=== PATIENT | male | born 1965 | race Caucasian/White ===

== ENCOUNTER 2023-06-28 08:14 | Inpatient (IN) | payer BC ==
[2023-06-28] MEDS ORDERED: SODIUM CHLORIDE 0.9% 2,000 ML IV STA (08:38)
[2023-06-28] MEDS ORDERED: ONDANSETRON 4 MG/2 ML VIAL IVP STA (08:38)
[2023-06-28] MEDS ORDERED: KETOROLAC 15 MG/ML 1 ML VIAL IVP STA (08:38)
[2023-06-28 08:53] LABS: Basophils % (A) 0 %; Eosinophils % (A) 1 %; HCT 39.8 % (39.0-53.0); HGB 14.4 gm/dL (13.0-17.5); Hyperchromasia Slight; Lymphocytes # (A) 0.6 k/uL (1.0-4.8); Lymphocytes % (A) 10 %; MCH 28.6 pg (25.0-35.0); MCHC 36.1 g/dL (31.0-37.0); MCV 79.1 fL (80.0-100.0); Mean Platelet Volume 7.6; Monocytes # (A) 0.4 k/uL (0-1.0); Monocytes % (A) 7 %; Neutrophils # (A) 4.5 k/uL (1.3-7.7); Neutrophils % (A) 81 %; Platelet Count 162 k/uL (150-450); Poikilocytosis Slight; RBC 5.03 m/uL (4.30-5.90); RDW 14.4 % (11.5-15.5); WBC 5.6 k/uL (3.8-10.6)
[2023-06-28 09:08] LABS: ALT 14 U/L (4-49); AST 26 U/L (17-59); African American GFR (CKD) 69 (>60 ml/min/1.73 sqM); Albumin 4.8 g/dL (3.5-5.0); Alkaline Phosphatase 99 U/L (38-126); Anion Gap 15 mmol/L; Blood Urea Nitrogen 22 mg/dL (9-20); Calcium 9.8 mg/dL (8.4-10.2); Carbon Dioxide 23 mmol/L (22-30); Chloride 98 mmol/L (98-107); Glucose 133 mg/dL (74-99); Lipase 95 U/L (23-300); Non-African American GFR(CKD) 60 (>60 ml/min/1.73 sqM); Potassium 3.8 mmol/L (3.5-5.1); Sodium 136 mmol/L (137-145); Total Bilirubin 2.1 mg/dL (0.2-1.3); Total Protein 7.2 g/dL (6.3-8.2)
--- NOTE | 2023-06-28 09:29 | CT ---
EXAMINATION TYPE: CT abdomen pelvis wo con DATE OF EXAM: 06/28/2023 COMPARISON: None HISTORY: Abdominal pain-right flank CT DLP: 683.6 mGycm Examination of the solid and hollow viscera is limited given the lack of contrast. Unenhanced CT of t he abdomen and pelvis was performed. Lack of contrast limits evaluation. FINDINGS: LUNG BASES: Layering gallstones are noted. No evidence for infiltrate. LIVER/GB: The gallbladder is unremarkable. No space-occupying hepatic lesion. PANCREAS: No pancreatic mass identified. No inflammatory process seen. SPLEEN: Splenomegaly with craniocaudal measurement of 16.9 cm. No intrasplenic lesions seen. ADRENALS: No adrenal nodules identified. No evidence for thickening. KIDNEYS: No evidence for renal mass. Nonobstructing calculus measuring 3 mm upper pole right kidney. There is mild right-sided hydroureteronephrosis. Hydroureter extends to a right hemipelvic mass which measures approximately 8.3 x 5.3 cm and is likely reflective of the conglomerate adenopathy. Additio nal enlarged lymph nodes are seen within the deep right iliac chain measuring 2.9 x 2.8 cm. Right com mon iliac chain adenopathy noted as well measuring 2.3 cm. Poor distention urinary bladder. BOWEL: Appendix has a normal appearance. No evidence of bowel obstruction. No inflammatory process. Lymph nodes: No evidence for adenopathy greater than 1 cm. Abdominal aorta: Atheromatous changes seen. No evidence for aneurysm. Genital organs: No significant abnormality. Other: Small fat-containing umbilical hernia. IMPRESSION: 1.There is mild right-sided hydroureteronephrosis. Hydroureter extends to a right hemipelvic mass whi ch measures approximately 8.3 x 5.3 cm and is likely reflective of the conglomerate adenopathy. Addit ional enlarged lymph nodes are seen within the deep right iliac chain measuring 2.9 x 2.8 cm. Right c ommon iliac chain adenopathy noted as well measuring 2.3 cm. 2. Splenomegaly.
[2023-06-28 09:40] LABS: Appearance,Urine Clear (Clear); Color,Urine Yellow
[2023-06-28 09:41] LABS: Bilirubin,Urine Negative (Negative); Blood,Urine Negative (Negative); Glucose,Urine (UA) Negative (Negative); Ketones,Urine 1+ (Negative); Nitrite,Urine Negative (Negative); Protein,Urine Trace (Negative)
[2023-06-28 09:42] LABS: Leukocyte Esterase,Urine Negative (Negative)
[2023-06-28] MEDS ORDERED: NALOXONE 0.4 MG/ML 1 ML VIAL IV PRN (10:22)
[2023-06-28] MEDS ORDERED: ACETAMINOPHEN TAB 325 MG TAB PO PRN (10:22)
--- NOTE | 2023-06-28 10:22 | ED ---
Abdominal Pain HPI - General Chief Complaint: Abdominal Pain Stated Complaint: R Abd Pain Time Seen by Provider: 06/28/23 08:25 Source: patient, RN notes reviewed Mode of arrival: ambulatory Limitations: no limitations - History of Present Illness Initial Comments: 57-year-old male presents emergency Department chief complaint abdominal pain. Patient is primarily right-sided does sometimes radiate to the left states that associated nausea and vomiting states nothing really makes the pain feel better or worse toe history kidney stones he denies any dysuria hematuria denies any change in bowel habits no fevers. Patient has no prior abdominal surgeries. - Related Data Allergies Allergy/AdvReac Type Severity Reaction Status Date / Time No Known Allergies Allergy Verified 06/28/23 08:24 Review of Systems ROS Statement: Those systems with pertinent positive or pertinent negative responses have been documented in the HPI. ROS Other: All systems not noted in ROS Statement are negative. Past Medical History Past Medical History: Diabetes Mellitus, Hypertension History of Any Multi-Drug Resistant Organisms: None Reported Additional Past Surgical History / Comment(s): Cyst removed from right knee in 1982 Past Psychological History: No Psychological Hx Reported Smoking Status: Never smoker Past Alcohol Use History: None Reported Past Drug Use History: None Reported General Exam Limitations: no limitations General appearance: alert, in no apparent distress Head exam: Present: atraumatic, normocephalic, normal inspection Eye exam: Present: normal appearance, PERRL, EOMI. Absent: scleral icterus, conjunctival injection, periorbital swelling ENT exam: Present: normal exam, mucous membranes moist Neck exam: Present: normal inspection. Absent: tenderness, meningismus, lymphadenopathy Respiratory exam: Present: normal lung sounds bilaterally. Absent: respiratory distress, wheezes, rales, rhonchi, stridor Cardiovascular Exam: Present: normal rhythm, tachycardia, normal heart sounds. Absent: systolic murmur, diastolic murmur, rubs, gallop, clicks GI/Abdominal exam: Present: soft, tenderness (Mild right), normal bowel sounds. Absent: distended, guarding, rebound, rigid Back exam: Absent: CVA tenderness (R), CVA tenderness (L) Neurological exam: Present: alert Course Vital Signs 06/28/23 08:21 Temperature 98 F Pulse Rate 112 H Respiratory 18 Rate Blood Pressure 156/93 O2 Sat by Pulse 98 Oximetry Medical Decision Making - Medical Decision Making Was pt. sent in by a medical professional or institution ([facility], [employer], urgent care, hospital, or [facility]...) When possible be specific @ -No Did you speak to anyone other than the patient for history (EMS, parent, family, police, friend...)? What history was obtained from this source @ -No Did you review nursing and triage notes (agree or disagree)? Why? @ -I reviewed and agree with nursing and triage notes Were old charts reviewed (outside hosp., previous admission, EMS record, old EKG, old radiological studies, urgent care reports/EKG's, [facility] records)? Report findings @ -No old charts were reviewed Differential Diagnosis (chest pain, altered mental status, abdominal pain women, abdominal pain men, vaginal bleeding, weakness, fever, dyspnea, syncope, headache, dizziness, GI bleed, back pain, seizure, CVA, palpatations, mental health, musculoskeletal)? @ -Differential Abdominal Pain Men: Appendicitis, cholecystitis, diverticulosis, ischemic bowel, pancreatitis, hepatitis, UTI, gastroenteritis, AAA, incarcerated hernia, bowel obstruction, constipation, inflammatory bowel, hepatitis, peptic ulcer disease, splenic infarction, perforated viscus, testicular torsion, this is not meant to be an all-inclusive list EKG interpreted by me (3pts min.). @ -None X-rays interpreted by me (1pt min.). @ -None done CT interpreted by me (1pt min.). @ -CT abdomen pelvis shows hydronephrosis, hydroureter caused by conglomerate lymphadenopathy or mass U/S interpreted by me (1pt. min.). @ -None done What testing was considered but not performed or refused? (CT, X-rays, U/S, labs)? Why? @ -None What meds were considered but not given or refused? Why? @ -None Did you discuss the management of the patient with other professionals (professionals i.e. [facility], [employer], lab, RT, psych nurse, social insurance specialist, commercial real estate agent, teacher, police officer crime prevention, housing case manager)? Give summary @ -I did discuss the case with on-call surgery who recommended patient to be admitted to medicine with oncology evaluation as there is no immediate surgical intervention and no obvious infectious causes. I did discuss case with internal medicine who accepts admission with consult to oncology. Was smoking cessation discussed for >3mins.? @ -No Was critical care preformed (if so, how long)? @ -No Were there social determinants of health that impacted care today? How? (Homelessness, low income, unemployed, alcoholism, drug addiction, transportation, low edu. Level, literacy, decrease access to med. care, nursing home, rehab)? @ -No Was there de-escalation of care discussed even if they declined (Discuss DNR or withdrawal of care, Hospice)? DNR status @ -No What co-morbidities impacted this encounter? (DM, HTN, Smoking, COPD, CAD, Cancer, CVA, ARF, Chemo, Hep., AIDS, mental health diagnosis, sleep apnea, morbid obesity)? @ -None Was patient admitted / discharged? Hospital course, mention meds given and route, prescriptions, significant lab abnormalities, going to OR and other pertinent info. @ -Admitted patient has notable intraabdominal mass and significant lymphadenopathy. This is causing hydroureter and hydronephrosis. Patient will be admitted for further workup and evaluation and symptomatic control. Undiagnosed new problem with uncertain prognosis? @ -Yes patient has intra-abdominal mass Drug Therapy requiring intensive monitoring for toxicity (Heparin, Nitro, Insulin, Cardizem)? @ -No Were any procedures done? @ -No Diagnosis/symptom? @ -Intra-abdominal mass, hydroureter or hydronephrosis Acute, or Chronic, or Acute on Chronic? @ -Acute Uncomplicated (without systemic symptoms) or Complicated (systemic symptoms)? @ -Complicated Side effects of treatment? @ -No Exacerbation, Progression, or Severe Exacerbation? @ -No Poses a threat to life or bodily function? How? (Chest pain, [place], NH, pneumonia, PE, COPD, DKA, ARF, appy, cholecystitis, CVA, Diverticulitis, Homicidal, Suicidal, threat to staff... and all critical care pts) @ -No - Lab Data Result diagrams: 06/28/23 08:44 06/28/23 08:44 Lab Results 06/28/23 06/28/23 06/28/23 Range/Units 08:44 08:44 08:44 WBC 5.6 (3.8-10.6) k/uL RBC 5.03 (4.30-5.90) m/uL Hgb 14.4 (13.0-17.5) gm/dL Hct 39.8 (39.0-53.0) % MCV 79.1 L (80.0-100.0) fL MCH 28.6 (25.0-35.0) pg MCHC 36.1 (31.0-37.0) g/dL RDW 14.4 (11.5-15.5) % Plt Count 162 (150-450) k/uL MPV 7.6 Neutrophils % 81 % Lymphocytes % 10 % Monocytes % 7 % Eosinophils % 1 % Basophils % 0 % Neutrophils # 4.5 (1.3-7.7) k/uL Lymphocytes # 0.6 L (1.0-4.8) k/uL Monocytes # 0.4 (0-1.0) k/uL Eosinophils # 0.0 (0-0.7) k/uL Basophils # 0.0 (0-0.2) k/uL Hyperchromasia Slight Poikilocytosis Slight Sodium 136 L (137-145) mmol/L Potassium 3.8 (3.5-5.1) mmol/L Chloride 98 (98-107) mmol/L Carbon Dioxide 23 (22-30) mmol/L Anion Gap 15 mmol/L BUN 22 H (9-20) mg/dL Creatinine 1.33 H (0.66-1.25) mg/dL Est GFR (CKD-EPI)AfAm 69 (>60 ml/min/1.73 sqM) Est GFR (CKD-EPI)NonAf 60 (>60 ml/min/1.73 sqM) Glucose 133 H (74-99) mg/dL Plasma Lactic Acid Carlos A (0.7-2.0) mmol/L Calcium 9.8 (8.4-10.2) mg/dL Total Bilirubin 2.1 H (0.2-1.3) mg/dL AST 26 (17-59) U/L ALT 14 (4-49) U/L Alkaline Phosphatase 99 (38-126) U/L Total Protein 7.2 (6.3-8.2) g/dL Albumin 4.8 (3.5-5.0) g/dL Lipase 95 (23-300) U/L Urine Color Yellow Urine Appearance Clear (Clear) Urine pH 7.0 (5.0-8.0) Ur Specific [place] 1.020 (1.001-1.035) Urine Protein Trace (Negative) Urine Glucose (UA) Negative (Negative) Urine Ketones 1+ H (Negative) Urine Blood Negative (Negative) Urine Nitrite Negative (Negative) Urine Bilirubin Negative (Negative) Urine Urobilinogen 4.0 (<2.0) mg/dL Ur Leukocyte Esterase Negative (Negative) 06/28/23 Range/Units 08:44 WBC (3.8-10.6) k/uL RBC (4.30-5.90) m/uL Hgb (13.0-17.5) gm/dL Hct (39.0-53.0) % MCV (80.0-100.0) fL MCH (25.0-35.0) pg MCHC (31.0-37.0) g/dL RDW (11.5-15.5) % Plt Count (150-450) k/uL MPV Neutrophils % % Lymphocytes % % Monocytes % % Eosinophils % % Basophils % % Neutrophils # (1.3-7.7) k/uL Lymphocytes # (1.0-4.8) k/uL Monocytes # (0-1.0) k/uL Eosinophils # (0-0.7) k/uL Basophils # (0-0.2) k/uL Hyperchromasia Poikilocytosis Sodium (137-145) mmol/L Potassium (3.5-5.1) mmol/L Chloride (98-107) mmol/L Carbon Dioxide (22-30) mmol/L Anion Gap mmol/L BUN (9-20) mg/dL Creatinine (0.66-1.25) mg/dL Est GFR (CKD-EPI)AfAm (>60 ml/min/1.73 sqM) Est GFR (CKD-EPI)NonAf (>60 ml/min/1.73 sqM) Glucose (74-99) mg/dL Plasma Lactic Acid Carlos A 1.3 (0.7-2.0) mmol/L Calcium (8.4-10.2) mg/dL Total Bilirubin (0.2-1.3) mg/dL AST (17-59) U/L ALT (4-49) U/L Alkaline Phosphatase (38-126) U/L Total Protein (6.3-8.2) g/dL Albumin (3.5-5.0) g/dL Lipase (23-300) U/L Urine Color Urine Appearance (Clear) Urine pH (5.0-8.0) Ur Specific [place] (1.001-1.035) Urine Protein (Negative) Urine Glucose (UA) (Negative) Urine Ketones (Negative) Urine Blood (Negative) Urine Nitrite (Negative) Urine Bilirubin (Negative) Urine Urobilinogen (<2.0) mg/dL Ur Leukocyte Esterase (Negative) Disposition Clinical Impression: Abdominal mass, Hydronephrosis, Hydroureter Disposition: ADMITTED IP TO THIS HOSP Condition: Fair Referrals: Devon Keane MD [Primary Care Provider] - 1-2 days Time of Disposition: 10:02
[2023-06-28] MEDS: SODIUM CHLORIDE 0.9% 1,000 ML IV SCH (10:46)
[2023-06-28] MEDS: HYDROcodone/APAP 5-325MG 1 EACH TAB PO PRN (14:29)
[2023-06-28] MEDS ORDERED: DEXTROSE 50% SYRINGE 50 ML IVP PRN ×2 (14:49)
[2023-06-28] MEDS ORDERED: HEPARIN SODIUM,PORCINE 5,000 UNIT/ML 1 ML VIAL SQ SCH (16:00)
--- NOTE | 2023-06-28 16:39 | P.HPIM ---
History of Present Illness H&P Date: 06/28/23 Patient is a 57-year-old male with history of hypertension, dyslipidemia, diabetes presenting with abdominal pain, nausea or vomiting. He claims that he's been having abdominal pain for the last couple of weeks, and started developing nausea and vomiting 2 days ago. His abdominal pain is mostly right lower quadrant. He denies any other symptoms including chest pain, shortness of breath, palpitations, urinary or bowel complaints. He denies any recent illnesses, travel history, any rashes. Denies any recent sick contacts. He denies any history of family history of malignancy. He claims that he has lost some weight over the last 1-1/2 years which has been intentional. In the ED, temperature was 98, pulse 112, respiratory rate 18, blood pressure 156/93, saturating at 98%. WBC 5.6, hemoglobin 13.4, MCV 79.1, sodium 136, creatinine 1.33, no baseline, total bilirubin 2.1. CT abdomen and pelvis shows mild right-sided hydroureteronephrosis extending to right hemipelvic mass which measures at 8.3 x 5.3 cm, reflective of adenopathy, enlarged lymph nodes within deep iliac right chain measuring at 2.9 cm x 2.8 cm as well as right common iliac chain adenopathy measuring at 2.3 cm x 2 cm, and also splenomegaly. ER had a conversation with surgery, no surgical interventions at the moment. Being admitted for oncology to see. Pertinent positives and negatives as discussed in HPI, a complete review of systems was performed and all other systems are negative. Patient seen and examined at bedside. Vital signs reviewed General: nontoxic, no distress, appears at stated age Derm: warm, dry Head: atraumatic, normocephalic, symmetric Eyes: EOMI, no lid lag, anicteric sclera, pupils equal round reactive to light ENT: Nose and ears atraumatic Neck: No thyromegaly, supple Mouth: no lip lesion, mucus membranes moist Cardiovascular: S1S2 reg, no murmur, no edema Lungs: clear to auscultation bilateral, no rhonchi, no rales, no wheeze, no accessory muscle use Abdominal: soft, tender to palpation right lower quadrant, no guarding, no appreciable organomegaly Ext: no gross muscle atrophy, muscle strength muscle strength 5 out of 5 in all 4 extremities, no contractures Neuro: CN II-XII grossly intact Psych: Alert, oriented, appropriate affect Assessment/Plan: Active: Abdominal adenopathy concerning for possible malignancy Right-sided hydroureteronephrosis Intractable nausea and vomiting Intractable abdominal pain Hyperbilirubinemia Possible acute kidney injury Type 2 diabetes -Oncology consulted, patient may need biopsy. -Tylenol as needed 650 every 6 hours, Sw[place] 5 every 4 hours as needed, Dilaudid 0.5 mg IV every 3 hours needed -Zofran 4 mg IV every 8 over as needed -Okay to continue normal saline at 75 mL an hour -Unsure about baseline creatinine, continue losartan for now -Sliding scale insulin, monitor for hypoglycemia, hold metformin Chronic: Hypertension Dyslipidemia The patient is admitted with an anticipated greater than 2 midnight stay as inpatient status for evaluation of possible malignancy. Surrogate decision-maker: Spouse CODE STATUS: Full code DVT prophylaxis: Subcu heparin Anticipated discharge date: Pending clinical course Anticipated discharge place: Pending clinical course A total of 55 minutes was spent on the care of this complex patient more than 50% of the time was spent in counseling and care coordination. Past Medical History Past Medical History: Diabetes Mellitus, Hypertension History of Any Multi-Drug Resistant Organisms: None Reported Additional Past Surgical History / Comment(s): Cyst removed from right knee in 1981 Past Psychological History: No Psychological Hx Reported Smoking Status: Never smoker Past Alcohol Use History: None Reported Past Drug Use History: None Reported - Past Family History Mother Family Medical History: Congestive Heart Failure (CHF), Diabetes Mellitus, Myocardial Infarction ([place]), Renal Disease Father Family Medical History: Myocardial Infarction ([place]) Medications and Allergies Home Medications Medication Instructions Recorded Confirmed Type Atorvastatin [Lipitor] 20 mg PO DAILY 06/28/23 06/28/23 History Ibuprofen [Motrin] 800 mg PO TID PRN 06/28/23 06/28/23 History Losartan [Cozaar] 25 mg PO DAILY 06/28/23 06/28/23 History Tirzepatide [Mounjaro] 12.5 mg SQ MO 06/28/23 06/28/23 History metFORMIN HCL 1,000 mg PO DAILY 06/28/23 06/28/23 History metFORMIN HCL 1,000 mg PO HS PRN 06/28/23 06/28/23 History Allergies Allergy/AdvReac Type Severity Reaction Status Date / Time No Known Allergies Allergy Verified 06/28/23 13:50 Physical Exam Vitals: Vital Signs Temp Pulse Resp BP Pulse Ox 06/28/23 14:00 94 18 147/86 97 06/28/23 10:23 80 20 145/72 98 06/28/23 08:21 98 F 112 H 18 156/93 98 Intake and Output 06/27/23 06/28/23 06/28/23 22:59 06:59 14:59 Other: Voiding Method Toilet Weight 81.647 kg Results CBC & Chem 7: 06/28/23 08:44 06/28/23 08:44 Labs: Abnormal Lab Results - Last 24 Hours (Table) 06/28/23 06/28/23 06/28/23 Range/Units 08:44 08:44 08:44 MCV 79.1 L (80.0-100.0) fL Lymphocytes # 0.6 L (1.0-4.8) k/uL Sodium 136 L (137-145) mmol/L BUN 22 H (9-20) mg/dL Creatinine 1.33 H (0.66-1.25) mg/dL Glucose 133 H (74-99) mg/dL Total Bilirubin 2.1 H (0.2-1.3) mg/dL Urine Ketones 1+ H (Negative)
[2023-06-28 17:11] LABS: Glucose,Whole Blood 80 mg/dL (70-110)
[2023-06-28] MEDS: INSULIN ASPART (NovoLOG) 100 UNIT/ML VIAL SQ SCH ×2 (17:24→20:31)
[2023-06-28 20:21] LABS: Glucose,Whole Blood 123 mg/dL (70-110)
[2023-06-29] MEDS: HYDROmorphone 0.5 MG/0.5 ML SYRINGE IVP PRN (00:48)
[2023-06-29] MEDS: SODIUM CHLORIDE 0.9% 1,000 ML IV SCH ×2 (00:49→12:46)
[2023-06-29 07:18] LABS: Glucose,Whole Blood 104 mg/dL (70-110)
[2023-06-29] MEDS: INSULIN ASPART (NovoLOG) 100 UNIT/ML VIAL SQ SCH ×4 (08:35→20:11)
[2023-06-29] MEDS: HYDROcodone/APAP 5-325MG 1 EACH TAB PO PRN ×2 (08:51→12:46)
[2023-06-29] MEDS: LOSARTAN 25 MG TAB PO SCH (08:53)
[2023-06-29] MEDS: SENNOSIDES 8.6 MG TAB PO SCH (08:53)
[2023-06-29] MEDS: ATORVASTATIN 20 MG TAB PO SCH (08:53)
[2023-06-29] MEDS ORDERED: ENOXAPARIN 40 MG/0.4 ML SYRINGE SQ SCH (09:00)
[2023-06-29 09:09] LABS: BUN/Creat Ratio 13.33 Ratio (12.00-20.00); Calcium 9.1 mg/dL (8.7-10.3); Chloride 103 mmol/L (96-109); Glucose 99 mg/dL (70-110); Sodium 139 mmol/L (135-145)
--- NOTE | 2023-06-29 10:30 | P.CONS ---
History of Present Illness - Reason for Consult Consult date: 06/29/23 lymphadenopathy Requesting physician: Shaggy Correa - Chief Complaint abd pain, N,V - History of Present Illness Mr. Carcamo is a 57-year-old male with a PMH of HTN, hyperlipidemia, type 2 diabetes mellitus who presented to the hospital with complaints of abdominal pain over the last few weeks, this is been progressive, associated symptoms of nausea and vomiting started the last few days, reports appetite has been poor last few weeks, this is also progressive. Patient has lost 80 pounds over the last year, he has been on Mounjaro. He denies fevers, night sweats, difficulty breathing or shortness of breath, his reports voice has changed, hoarseness. No unusual indigestion or heartburn, abdominal pain or distention, no testicular swelling or masses felt, patient has not palpated any lumps in the groin or the axilla. He is a lifetime nonsmoker, no ETOH abuse. 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 No family history of cancer, no personal history of cancer. He has never had a colonoscopy or ColoGuard testing, he has had his PSA checked. His primary care is Dr. Keane. On admission patient had a CT of the abdomen and pelvis without contrast. This reported splenomegaly, right hemipelvic mass 8.3 x 5.3 cm felt to represent a conglomerate adenopathy. There is also lymphadenopathy in the deep right iliac chain 2.9 x 2.8 cm and right common iliac 2.3 cm. CBC was within normal defined limits, absolute lymphocyte count slightly low at 0.6. BUN 22, creatinine 1.33, bilirubin 2.1. 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 - Past Family History Mother Family Medical History: Congestive Heart Failure (CHF), Diabetes Mellitus, Myocardial Infarction ([place]), Renal Disease Father Family Medical History: Myocardial Infarction ([place]) Medications and Allergies Home Medications Medication Instructions Recorded Confirmed Type Atorvastatin [Lipitor] 20 mg PO DAILY 06/28/23 06/28/23 History Ibuprofen [Motrin] 800 mg PO TID PRN 06/28/23 06/28/23 History Losartan [Cozaar] 25 mg PO DAILY 06/28/23 06/28/23 History Tirzepatide [Mounjaro] 12.5 mg SQ MO 06/28/23 06/28/23 History metFORMIN HCL 1,000 mg PO DAILY 06/28/23 06/28/23 History metFORMIN HCL 1,000 mg PO HS PRN 06/28/23 06/28/23 History Allergies Allergy/AdvReac Type Severity Reaction Status Date / Time No Known Allergies Allergy Verified 06/28/23 13:50 Physical Exam Vitals: Vital Signs Temp Pulse Pulse Resp BP BP Pulse Ox 06/29/23 07:42 98.6 F 93 15 151/87 97 06/29/23 02:00 98.2 F 104 H 16 143/82 97 06/28/23 20:00 98.2 F 89 16 149/88 98 06/28/23 16:12 98.4 F 94 17 135/83 98 06/28/23 15:54 98.4 F 95 18 148/87 97 06/28/23 14:00 94 18 147/86 97 06/28/23 10:23 80 20 145/72 98 Intake and Output 06/28/23 06/29/23 06/29/23 22:59 06:59 14:59 Intake Total 590 Balance 590 Intake: Oral 590 Other: Voiding Method Toilet # Voids 1 3 - Constitutional General appearance: average body habitus, cooperative, no acute distress - EENT Eyes: anicteric sclerae, EOMI, poor dentition ENT: hearing grossly normal, normal oropharynx - Neck Neck: no lymphadenopathy, normal ROM - Respiratory Respiratory: bilateral: CTA - Cardiovascular Rhythm: regular Heart sounds: normal: S1, S2 Abnormal Heart Sounds: no systolic murmur, no diastolic murmur, no rub, no S3 Gallop, no S4 Gallop, no click, no other leg Peripheral Edema: bilateral: None - Gastrointestinal General gastrointestinal: no absent bowel sounds, no decreased bowel sounds, no distended, no hepatomegaly, no hyperactive bowel sounds, normal bowel sounds, no organomegaly, no rigid, no scaphoid, soft, no splenomegaly, no tenderness, no umbilical hernia, no ventral hernia - Integumentary Integumentary: normal - Neurologic Neurologic: CNII-XII intact - Musculoskeletal Musculoskeletal: strength equal bilaterally - Psychiatric Psychiatric: A&O x's 3, appropriate affect, intact judgment & insight Results CBC & Chem 7: 06/28/23 08:44 06/29/23 04:20 Labs: Abnormal Lab Results - Last 24 Hours (Table) 06/28/23 06/28/23 06/28/23 Range/Units 08:44 08:44 08:44 MCV 79.1 L (80.0-100.0) fL Lymphocytes # 0.6 L (1.0-4.8) k/uL Sodium 136 L (137-145) mmol/L BUN 22 H (9-20) mg/dL Creatinine 1.33 H (0.66-1.25) mg/dL Glucose 133 H (74-99) mg/dL POC Glucose (mg/dL) (70-110) mg/dL Hemoglobin A1c (<=6.0) % Total Bilirubin 2.1 H (0.2-1.3) mg/dL Urine Ketones 1+ H (Negative) 06/28/23 06/29/23 Range/Units 20:20 04:20 MCV (80.0-100.0) fL Lymphocytes # (1.0-4.8) k/uL Sodium (137-145) mmol/L BUN (9-20) mg/dL Creatinine (0.66-1.25) mg/dL Glucose (74-99) mg/dL POC Glucose (mg/dL) 123 H (70-110) mg/dL Hemoglobin A1c 6.2 H (<=6.0) % Total Bilirubin (0.2-1.3) mg/dL Urine Ketones (Negative) CT scan - abdomen: report reviewed CT scan - pelvis: report reviewed Assessment and Plan (1) Lymphadenopathy Current Visit: Yes Status: Acute Priority: High Code(s): R59.1 - GENERALIZED ENLARGED LYMPH NODES SNOMED Code(s): 35183248 (2) Hydronephrosis Current Visit: Yes Status: Acute Priority: High Code(s): N13.30 - UNSPECIFIED HYDRONEPHROSIS SNOMED Code(s): 05963833 Plan: Lymphadenopathy -AP without contrast reporting splenomegaly, right hemipelvic mass 8.3 x 5.3 cm, lymphadenopathy in the deep right iliac chain 2.9 x 2.8 cm, right common iliac lymphadenopathy 2.3 cm. Patient's CBC is normal, slightly low absolute lymphocyte count 0.6. Mild renal dysfunction BUN 22 creatinine 1.33. Slightly elevated bilirubin 2.1. Findings concerning for malignant process. -CT of the neck and chest to assess for additional lymphadenopathy -Consult Interventional Radiology to review images to see if a percutaneous core biopsy is reasonable. If not, will consult Surgeon for laparoscopic lymph node excision -Labs ordered to assess lymphadenopathy further. -Lymphadenopathy causing extrinsic compression on right ureter with subsequent hydronephrosis. Will consult Urology for assessment and recommendations regarding if stent is needed or not and if it is, would stent provide relief in this case. -All of the above was discussed with the patient and his , they verbalize understanding the recommendations and plan and are agreeable to proceed. Doctor attests: I performed a history and physical examination of this patient, developed impression and plan of care. Discussed with dictator. I agree with dictators note, documented as a scribe.
[2023-06-29 12:03] LABS: Glucose,Whole Blood 95 mg/dL (70-110)
--- NOTE | 2023-06-29 12:17 | CT ---
EXAMINATION TYPE: CT neck chest w con CT DLP: 964.1 mGycm, Automated exposure control for dose reduction was used. DATE OF EXAM: 06/29/2023 12:01 PM COMPARISON: CT abdomen pelvis 06/28/2023. CLINICAL INDICATION:Male, 57 years old with history of LAD in abd/pelvis, concern for malignancy;, r/ o mets TECHNIQUE: Standard enhanced CT of the neck and chest. Axial sections with coronal and sagittal refo rmats were obtained. Contrast used:100 mL of Isovue 300 with IV Contrast, (none if empty) Oral contrast used: (none if empty) FINDINGS: Brain: Visualized portions are grossly unremarkable. Orbits: Unremarkable Sinuses: Grossly unremarkable. Suprahyoid Neck: The oropharynx, oral cavity, parapharyngeal and retropharyngeal spaces are clear and symmetric. The nasopharynx is unremarkable. Infrahyoid Neck: The larynx, hypopharynx, and supraglottic area are clear and symmetric. Parotid Glands: Unremarkable. Submandibular Glands: Unremarkable. Musculoskeletal: No acute osseous pathology. No aggressive osseous lesion. Lymph nodes: No pathologically enlarged cervical lymph nodes identified.. Vascular structures: Patent with mild atherosclerotic plaque of the internal carotid arteries at the bifurcation. Thoracic Inlet/airway: Airway is patent. The lung apices are clear. Soft tissues/Thyroid: Thyroid and remainder of the soft tissues are unremarkable. Other: none. LUNGS/ PLEURA: No pleural effusion, pneumothorax, focal consolidation. Bilateral lower lobe subsegmen mally atelectasis. No suspicious pulmonary nodule or mass. Elevation the right hemidiaphragm. AIRWAY: Patent and unremarkable. HEART: Size within normal limits. No pericardial effusion. MEDIASTINUM: No evidence of adenopathy. VASCULATURE: No aortic aneurysm. MUSCULOSKELETAL: Mild disc degeneration changes are present throughout the thoracolumbar spine. No ac lalita osseous abnormality. No aggressive osseous lesion. SOFT TISSUES/LYMPH NODES: Unremarkable. LOWER NECK: No significant findings. UPPER ABDOMEN: The hypodense splenic lesions identified with largest measuring up to 4.1 cm. Enlarged spleen measuring 14.8 cm in CC dimension. Cholelithiasis. Periampullary duodenal diverticulum. IMPRESSION 1. No evidence of metastatic disease within the neck or chest. 2. Splenomegaly with at least 3 hypodense lesions identified with largest measuring up to 4.1 cm. [place] concern for splenic metastasis. 3. Cholelithiasis.
[2023-06-29 13:47] LABS: INR 1.1 (<1.2); Prothrombin Time 11.5 sec (10.0-12.5)
--- NOTE | 2023-06-29 16:25 | P.PN ---
Subjective Progress Note Date: 06/29/23 Hospital course: Patient is a very pleasant 57-year-old male with a past medical history of hypertension, dyslipidemia, and type II iqa-pwkakcl-nsuaqcfos diabetes. Pt presented to the hospital on 06/28/23 with abdominal pain, nausea or vomiting. He underwent full evaluation in the emergency department. Labs completed and reviewed. CBC showing no significant abnormalities. BMP revealing elevated renal function with BUN of 22, creatinine 1.33, and GFR of 60 with no previous labs for comparison therefore acute kidney injury versus chronic kidney disease. Lactate was normal findings at 1.3. Liver profile showing elevated total bili of 2.1 and otherwise normal findings. LDH 241. Urinalysis is positive for ketones negative for blood or infection. CT abdomen and pelvis completed revealing right-sided hydronephrosis with hydroureter extending to a right hemipelvic mass measuring approximately 8.3 x 5.3 cm with enlarged lymph nodes seen within right deep iliac chain measuring 2.9 x 2.8 cm, right common iliac chain adenopathy measuring 2.3 cm, and splenomegaly. Patient admitted under our services with consultation to hematology/oncology. Physical exam: Patient seen and fully evaluated at bedside. He reports continued pain to right lower flank but currently denies having any other complaints at this time. Vital signs reviewed and stable. General: Nontoxic, no distress and appears stated age. Derm: Skin warm and dry, normal coloration for ethnicity. Head: Atraumatic, normocephalic and symmetric. Eyes: EOMs intact, no lid lag, and anicteric sclera Mouth: no lip lesions, mucus membranes moist Cardiovascular: regular rate and rhythm with normal S1S2, no murmur, positive posterior tibial pulses bilaterally, and cap refill < 2 seconds. Lungs: Respirations even, regular, and unlabored on room air. Lungs CTA bilaterally, no rhonchi, no rales, no wheezing, and no accessory muscle usage. Abdominal: soft, patient with tenderness to right lower flank, no CVA tenderness Ext: No gross muscle atrophy, no edema, no contractures movement and sensation intact. Patient ambulatory in room with a steady gait. Neuro: Speech clear, face symmetrical and CN II-XII grossly intact with no noted focal neuro deficits. GCS 15. Psych: Alert and oriented to person, place, time, and situation. Appropriate and pleasant affect. Assessment and Plan of Care: Abdominal adenopathy concerning for possible malignancy Right-sided hydroureteronephrosis secondary to obstructing hemipelvis mass Intractable nausea and vomiting Intractable abdominal pain Hyperbilirubinemia -Oncology following, patient will likely need biopsy and placed order for CT neck and chest. -Continue symptomatic care and pain management with Tylenol as needed 650 every 6 hours as needed for mild pain, [place] 5/325 mg tablets every 4 hours as needed for moderate pain, and Dilaudid 0.5 mg IVP every 3 hours as needed for severe pain. -Zofran 4 mg IV every 8 over as needed -Okay to continue normal saline at 75 mL an hour Hypertension Elevated renal function, unclear if acute versus chronic -Patient was started back on losartan as elevated renal function unclear if acute versus chronic and likely is chronic secondary to diabetes and hypertension. At this time patient to continue losartan 25 mg daily while awaiting repeat BMP. If renal function remains stable patient to continue fu rther elevation we will hold the time. Dyslipidemia -Continue daily medication regimen with atorvastatin 20 mg daily. Type 2 diabetes mellitus -Hold Mounjaro and metformin in place patient on glycemic protocol with NovoLog sliding scale. CODE STATUS: Full code DVT prophylaxis: Heparin Anticipated discharge date: Clinical course to determine Anticipated discharge place: Clinical course to determine Patient was seen independently by Nurse Pracitioner. This document was prepared using [employer] dictation software. Please allow for errors in employment appeals examiner, while rare they do occur. Edison Ellis NP rendered care for this patient independently, reviewed the findings and plan as documented in the note above. I did not physically speak with or examine the patient on this date. Given Patients increasing creatinine will consult urology given hydroureter to see if stent would be of benefit. Objective - Vital Signs Vital signs: Vital Signs Temp 98.6 F 06/29/23 07:42 Pulse 93 06/29/23 07:42 Resp 15 06/29/23 07:42 BP 151/87 06/29/23 07:42 Pulse Ox 97 06/29/23 07:42 FiO2 Intake & Output 06/28/23 06/29/23 06/29/23 18:59 06:59 18:59 Intake Total 590 Balance 590 Weight 81.647 kg Intake: Oral 590 Other: Voiding Method Toilet Toilet # Voids 1 3 - Labs CBC & Chem 7: 06/28/23 08:44 06/29/23 04:20 Labs: Abnormal Lab Results - Last 24 Hours (Table) 06/28/23 06/28/23 06/28/23 Range/Units 08:44 08:44 08:44 MCV 79.1 L (80.0-100.0) fL Lymphocytes # 0.6 L (1.0-4.8) k/uL Sodium 136 L (137-145) mmol/L BUN 22 H (9-20) mg/dL Creatinine 1.33 H (0.66-1.25) mg/dL Glucose 133 H (74-99) mg/dL POC Glucose (mg/dL) (70-110) mg/dL Hemoglobin A1c (<=6.0) % Total Bilirubin 2.1 H (0.2-1.3) mg/dL Urine Ketones 1+ H (Negative) 06/28/23 06/29/23 Range/Units 20:20 04:20 MCV (80.0-100.0) fL Lymphocytes # (1.0-4.8) k/uL Sodium (137-145) mmol/L BUN (9-20) mg/dL Creatinine (0.66-1.25) mg/dL Glucose (74-99) mg/dL POC Glucose (mg/dL) 123 H (70-110) mg/dL Hemoglobin A1c 6.2 H (<=6.0) % Total Bilirubin (0.2-1.3) mg/dL Urine Ketones (Negative)
[2023-06-29] MEDS: ONDANSETRON 4 MG/2 ML VIAL IVP PRN (16:38)
[2023-06-29 17:23] LABS: Glucose,Whole Blood 126 mg/dL (70-110)
[2023-06-29 20:11] LABS: Glucose,Whole Blood 149 mg/dL (70-110)
[2023-06-29] MEDS ORDERED: hydrALAZINE HCL 25 MG TAB PO STA (20:44)
[2023-06-30] MEDS: SODIUM CHLORIDE 0.9% 1,000 ML IV SCH ×2 (05:28→19:05)
[2023-06-30 07:09] LABS: Glucose,Whole Blood 117 mg/dL (70-110)
[2023-06-30] MEDS: INSULIN ASPART (NovoLOG) 100 UNIT/ML VIAL SQ SCH ×4 (07:53→20:37)
[2023-06-30] MEDS: ONDANSETRON 4 MG/2 ML VIAL IVP PRN (09:07)
[2023-06-30] MEDS: SENNOSIDES 8.6 MG TAB PO SCH (09:07)
[2023-06-30] MEDS: ATORVASTATIN 20 MG TAB PO SCH (09:07)
[2023-06-30] MEDS: LOSARTAN 25 MG TAB PO SCH (09:07)
[2023-06-30] MEDS: HYDROmorphone 0.5 MG/0.5 ML SYRINGE IVP PRN (09:39)
[2023-06-30] MEDS ORDERED: hydrALAZINE HCL 20 MG/ML 1 ML VIAL IVP STA (11:23)
[2023-06-30] MEDS ORDERED: HYDROmorphone 1 MG/ML 1 ML SYRINGE IVP STA (11:24)
[2023-06-30] MEDS ORDERED: LORazepam 2 MG/ML INJ IV STA (11:26)
[2023-06-30] MEDS ORDERED: HYDROmorphone 0.5 MG/0.5 ML SYRINGE IVP STA (11:27)
[2023-06-30 12:54] LABS: Glucose,Whole Blood 97 mg/dL (70-110)
--- NOTE | 2023-06-30 14:31 | CT ---
EXAMINATION TYPE: CT biopsy abdomen percutaneous DATE OF EXAM: 06/30/2023 12:34 PM CLINICAL INDICATION:Male, 57 years old with history of right abdominal mass core biopsy; right sided abdominal bx COMPARISON: 06/28/2023 CT DLP: 833 mGycm, Automated exposure control for dose reduction was used. Contrast used: mL of , none Oral contrast used: none ATTENDING: Dr. Solomon Ann TECHNIQUE: CT guided percutaneous right abdominal mass biopsy using coaxial method. The Radiologist intra-servic e time with the patient under sedation was [address] One or more CT dose reduction strategies were utilized during this examination. Total CT dose 33 mGycm. FINDINGS: The procedure was explained to the patient including risks of bleeding, bruising, infection, damage t o nearby organs and need for additional therapy including potential surgery. All questions were answ ered and consent was obtained. The previous studies were reviewed. The patient was placed on the CT couch in the supine position. The overlying skin was marked and prepped using sterile method. Timeout was taken per protocol. Follo wing administration of local anesthesia a 18 gauge coaxial needle was introduced on the right or mass . The coaxial needle tip was directed into the mass with CT guidance. Multiple 19 gauge coaxial bio psies were then obtained. Touch prep of portions of the specimen were reviewed by pathology departm ent personnel during the procedure to evaluate for cellularity of the samples. The biopsy samples we re sent in appropriate containers for lab analysis. Following the procedure the needle was removed and sterile dressing was applied to the percutaneous site. Post biopsy imaging demonstrated no evid ence of hemorrhage. Patient was taken for postprocedure observation in stable condition. IMPRESSIONS: Status post percutaneous right lower inguinal intra-abdominal mass cc as described above. Pathology r esults pending.
[2023-06-30] MEDS: HYDROcodone/APAP 5-325MG 1 EACH TAB PO PRN (16:40)
--- NOTE | 2023-06-30 16:40 | P.PN ---
Subjective Progress Note Date: 06/30/23 Principal diagnosis: lymphadenopathy At today's visit patient is resting comfortably in bed, family at bedside. S/P biopsy today. Blood pressure was elevated prior to procedure, IV push hydralazine was given along with Ativan and pain medication with improvement in blood pressure and patient was able to proceed with biopsy. Objective - Vital Signs Vital signs: Vital Signs Temp 98.2 F 06/30/23 12:48 Pulse 117 H 06/30/23 12:48 Resp 19 06/30/23 12:48 BP 163/93 06/30/23 12:48 Pulse Ox 96 06/30/23 12:48 FiO2 Intake & Output 06/29/23 06/30/23 06/30/23 18:59 06:59 18:59 Intake Total 590 Balance 590 Intake: Oral 590 Other: Voiding Method Toilet Toilet Toilet # Voids 2 - Constitutional General appearance: Present: average body habitus, no acute distress - EENT Eyes: Present: anicteric sclerae, EOMI ENT: Present: hearing grossly normal - Respiratory Details: breathing is even and unlabored - Cardiovascular Details: skin is warm and dry - Integumentary Integumentary: Absent: cyanotic - Musculoskeletal Musculoskeletal: Present: strength equal bilaterally - Psychiatric Psychiatric: Present: A&O x's 3, appropriate affect, intact judgment & insight - Labs CBC & Chem 7: 06/28/23 08:44 06/29/23 04:20 Labs: Abnormal Lab Results - Last 24 Hours (Table) 06/29/23 06/29/23 06/30/23 Range/Units 17:16 20:05 07:08 POC Glucose (mg/dL) 126 H 149 H 117 H (70-110) mg/dL - Imaging and Cardiology CT scan - abdomen: report reviewed CT scan - chest: report reviewed Assessment and Plan (1) Abdominal mass Current Visit: Yes Status: Acute Priority: High Code(s): R19.00 - INTRA- ABD AND PELVIC SWELLING, MASS AND LUMP, UNSP SITE SNOMED Code(s): 919190977 (2) Lymphadenopathy Current Visit: Yes Status: Acute Priority: High Code(s): R59.1 - GENERALIZED ENLARGED LYMPH NODES SNOMED Code(s): 47672502 Plan: Lymphadenopathy: -AP without contrast reporting splenomegaly, right hemipelvic mass 8.3 x 5.3 cm, lymphadenopathy in the deep right iliac chain 2.9 x 2.8 cm, right common iliac lymphadenopathy 2.3 cm. Patient's CBC is normal, slightly low absolute lymphocyte count 0.6. Mild renal dysfunction BUN 22 creatinine 1.33. Slightly elevated bilirubin 2.1. Findings concerning for malignant process. -CT of the neck and chest ordered to assess for additional lymphadenopathy. Scan revealed no evidence of metastatic disease within the neck and chest. -Consult placed for Interventional Radiology to review images to see if a percutaneous core biopsy is reasonable. BP elevated prior to biopsy, spoke with IM, meds ordered, with improvement in BP. Biopsy was then able to be obtained. Spoke with pt and family and let them know that results can take 3-7 days. From oncology standpoint pt does not need to be hospitalized until resulted, will f/u with patient in clinic to discuss pathology and plan of care pending results. -Will request flow cytometry on pathology. LDH normal -Lymphadenopathy causing extrinsic compression on right ureter with subsequent hydronephrosis. Urology consulted for assessment and recommendations regarding if stent is needed or not and if it is, would stent provide relief in this case. Will await their recommendation -All of the above was discussed with the patient and his , they verbalized understanding and are agreeable with shelia Quinteros attests: I have performed a history and physical examination of this patient, developed impression and plan of care. Discussed with dictator. I agree with dictators note, documented as a scribe.
[2023-06-30 17:58] LABS: Glucose,Whole Blood 112 mg/dL (70-110)
--- NOTE | 2023-06-30 18:53 | P.PN ---
Subjective Progress Note Date: 06/30/23 Hospital course: Patient is a very pleasant 57-year-old male with a past medical history of hypertension, dyslipidemia, and type II dkq-ypmwnnv-fiisarqal diabetes. Pt presented to the hospital on 06/28/23 with abdominal pain, nausea or vomiting. He underwent full evaluation in the emergency department. Labs completed and reviewed. CBC showing no significant abnormalities. BMP revealing elevated renal function with BUN of 22, creatinine 1.33, and GFR of 60 with no previous labs for comparison therefore acute kidney injury versus chronic kidney disease. Lactate was normal findings at 1.3. Liver profile showing elevated total bili of 2.1 and otherwise normal findings. LDH 241. Urinalysis is positive for ketones negative for blood or infection. CT abdomen and pelvis completed revealing right-sided hydronephrosis with hydroureter extending to a right hemipelvic mass measuring approximately 8.3 x 5.3 cm with enlarged lymph nodes seen within right deep iliac chain measuring 2.9 x 2.8 cm, right common iliac chain adenopathy measuring 2.3 cm, and splenomegaly. Patient admitted under our services with consultation to hematology/oncology. Physical exam: Patient seen and fully evaluated at bedside. the patient's family at bedside. Patient anxious this morning regarding undergoing biopsy.. Vital signs reviewed and stable. General: Nontoxic, no distress and appears stated age. Derm: Skin warm and dry, normal coloration for ethnicity. Head: Atraumatic, normocephalic and symmetric. Eyes: EOMs intact, no lid lag, and anicteric sclera Mouth: no lip lesions, mucus membranes moist Cardiovascular: regular rate and rhythm with normal S1S2, no murmur, positive posterior tibial pulses bilaterally, and cap refill < 2 seconds. Lungs: Respirations even, regular, and unlabored on room air. Lungs CTA bilaterally, no rhonchi, no rales, no wheezing, and no accessory muscle usage. Abdominal: soft, patient with tenderness to right lower flank, no CVA tenderne ss Ext: No gross muscle atrophy, no edema, no contractures movement and sensation intact. Patient ambulatory in room with a steady gait. Neuro: Speech clear, face symmetrical and CN II-XII grossly intact with no noted focal neuro deficits. GCS 15. Psych: Alert and oriented to person, place, time, and situation. Appropriate and pleasant affect. Assessment and Plan of Care: Abdominal adenopathy concerning for possible malignancy Right-sided hydroureteronephrosis secondary to obstructing hemipelvis mass Intractable nausea and vomiting Intractable abdominal pain Hyperbilirubinemia -Oncology following, patient scheduled to undergo biopsy with interventional radiologist this morning. -Continue symptomatic care and pain management with Tylenol as needed 650 every 6 hours as needed for mild pain, [place] 5/325 mg tablets every 4 hours as needed for moderate pain, and Dilaudid 0.5 mg IVP every 3 hours as needed for severe pain. -Zofran 4 mg IV every 8 over as needed -follow up on biopsy results. Hypertensive urgency: Sinus tachycardia: Anxiety Patient had an episode of hypertensive urgency and tachycardia this morning. Patient was very anxious regarding undergoing biopsy. Patient was given hydralazine 20 mg IVP 1 dose, Ativan 1 mg IVP, and Dilaudid 0.5 mg IVP.blood pressure significantly improving from previous 173/101-144/85. Patient being taken down for biopsy at this time. We will continue to monitor vital signs closely and place additional orders as needed. Hypertension Elevated renal function, unclear if acute versus chronic -continue losartan 25 mg daily and patient also started on amlodipine 5 mg daily. Dyslipidemia -Continue daily medication regimen with atorvastatin 20 mg daily. Type 2 diabetes mellitus -Hold Mounjaro and metformin in place patient on glycemic protocol with NovoLog sliding scale. CODE STATUS: Full code DVT prophylaxis: Heparin Anticipated discharge date: Clinical course to determine Anticipated discharge place: Clinical course to determine Patient was seen independently by Nurse Pracitioner. This document was prepared using [employer] dictation software. Please allow for errors in records technician, while rare they do occur. Edison Ellis NP rendered care for this patient independently, reviewed the findings and plan as documented in the note above. I did not physically speak with or examine the patient on this date. Objective - Vital Signs Vital signs: Vital Signs Temp 98.9 F 06/30/23 02:00 Pulse 113 H 06/30/23 02:00 Resp 16 06/30/23 02:00 BP 159/89 06/30/23 02:00 Pulse Ox 96 06/30/23 02:00 FiO2 Intake & Output 06/29/23 06/30/23 06/30/23 18:59 06:59 18:59 Intake Total 590 Balance 590 Intake: Oral 590 Other: Voiding Method Toilet Toilet # Voids 2 - Labs CBC & Chem 7: 07/01/23 06:44 07/01/23 06:44 Labs: Abnormal Lab Results - Last 24 Hours (Table) 06/29/23 06/29/23 06/30/23 Range/Units 17:16 20:05 07:08 POC Glucose (mg/dL) 126 H 149 H 117 H (70-110) mg/dL
[2023-06-30] MEDS ORDERED: LORazepam 1 MG TAB PO PRN (19:34)
[2023-06-30 20:22] LABS: Glucose,Whole Blood 131 mg/dL (70-110)
[2023-07-01 07:32] LABS: Glucose,Whole Blood 99 mg/dL (70-110)
[2023-07-01] MEDS: INSULIN ASPART (NovoLOG) 100 UNIT/ML VIAL SQ SCH ×4 (08:02→21:52)
[2023-07-01] MEDS: LOSARTAN 25 MG TAB PO SCH (08:36)
[2023-07-01] MEDS: SENNOSIDES 8.6 MG TAB PO SCH (08:36)
[2023-07-01] MEDS: amLODIPine 5 MG TAB PO SCH (08:36)
[2023-07-01] MEDS: ATORVASTATIN 20 MG TAB PO SCH (08:36)
[2023-07-01 09:38] LABS: ALT 7 U/L (10-49); AST 13 U/L (14-35); Albumin 4.2 d/dL (3.8-4.9); Albumin/Globulin Ratio 2.47 Ratio (1.60-3.17); Alkaline Phosphatase 94 U/L (41-126); BUN/Creat Ratio 10.12 Ratio (12.00-20.00); Blood Urea Nitrogen 16.2 mg/dL (9.0-27.0); Calcium 9.7 mg/dL (8.7-10.3); Carbon Dioxide 23.3 mmol/L (21.6-31.8); Chloride 100 mmol/L (96-109); Globulin 1.7 d/dL (1.6-3.3); Glucose 92 mg/dL (70-110); Magnesium 1.7 mg/dL (1.5-2.4); Potassium 4.1 mmol/L (3.5-5.5); Sodium 137 mmol/L (135-145); Total Bilirubin 1.4 mg/dL (0.3-1.2); Total Protein 5.9 d/dL (6.2-8.2)
[2023-07-01 10:06] LABS: HCT 35.7 % (39.6-50.0); HGB 12.7 d/dL (13.0-17.0); MCH 27.5 pg (27.0-32.0); MCHC 35.6 d/dL (32.0-37.0); MCV 77.3 FL (80.0-97.0); Mean Platelet Volume 8.9 FL (9.5-12.2); NRBC Per 100 WBC 0 X 10*3/uL (0.00-0.01); Platelet Count 158 X 10*3/uL (140-440); RBC 4.62 X 10*6/uL (4.40-5.60); WBC 3.86 X 10*3/uL (4.50-10.00)
[2023-07-01] MEDS: METOPROLOL TARTRATE 25 MG TAB PO SCH ×2 (12:15→21:51)
[2023-07-01 12:32] LABS: Glucose,Whole Blood 107 mg/dL (70-110)
[2023-07-01] MEDS: HYDROcodone/APAP 5-325MG 1 EACH TAB PO PRN (15:25)
--- NOTE | 2023-07-01 15:28 | P.PN ---
Subjective Progress Note Date: 07/01/23 Hospital course: Patient is a very pleasant 57-year-old male with a past medical history of hypertension, dyslipidemia, and type II hln-dxbmtca-vbkkeauko diabetes. Pt presented to the hospital on 06/28/23 with abdominal pain, nausea or vomiting. He underwent full evaluation in the emergency department. Labs completed and reviewed. CBC showing no significant abnormalities. BMP revealing elevated renal function with BUN of 22, creatinine 1.33, and GFR of 60 with no previous labs for comparison therefore acute kidney injury versus chronic kidney disease. Lactate was normal findings at 1.3. Liver profile showing elevated total bili of 2.1 and otherwise normal findings. LDH 241. Urinalysis is positive for ketones negative for blood or infection. CT abdomen and pelvis completed revealing right-sided hydronephrosis with hydroureter extending to a right hemipelvic mass measuring approximately 8.3 x 5.3 cm with enlarged lymph nodes seen within right deep iliac chain measuring 2.9 x 2.8 cm, right common iliac chain adenopathy measuring 2.3 cm, and splenomegaly. Patient admitted under our services with consultation to hematology/oncology. She underwent CT guided bio psy on 06/30/23. Physical exam: Patient seen and fully evaluated at bedside. He continues to report mild pain but reports he is feeling better than yesterday. Blood pressures remain slightly elevated. Patient with an acute kidney injury today losartan to be discontinued and patient started on IV fluid hydration. Vital signs reviewed and stable. General: Nontoxic, no distress and appears stated age. Derm: Skin warm and dry, normal coloration for ethnicity. Head: Atraumatic, normocephalic and symmetric. Eyes: EOMs intact, no lid lag, and anicteric sclera Mouth: no lip lesions, mucus membranes moist Cardiovascular: regular rate and rhythm with normal S1S2, no murmur, positive posterior tibial pulses bilaterally, and cap refill < 2 seconds. Lungs: Respirations even, regular, and unlabored on room air. Lungs CTA bilaterally, no rhonchi, no rales, no wheezing, and no accessory muscle usage. Abdominal: soft, patient with tenderness to right lower flank, no CVA tenderness Ext: No gross muscle atrophy, no edema, no contractures movement and sensation intact. Patient ambulatory in room with a steady gait. Neuro: Speech clear, face symmetrical and CN II-XII grossly intact with no noted focal neuro deficits. GCS 15. Psych: Alert and oriented to person, place, time, and situation. Appropriate and pleasant affect. Assessment and Plan of Care: Abdominal adenopathy concerning for possible malignancy Right-sided hydroureteronephrosis secondary to obstructing hemipelvis mass Intractable nausea and vomiting Intractable abdominal pain Hyperbilirubinemia -Oncology following, patient scheduled to undergo biopsy with interventional radiologist this morning. -Continue symptomatic care and pain management with Tylenol as needed 650 every 6 hours as needed for mild pain, [place] 5/325 mg tablets every 4 hours as needed for moderate pain, and Dilaudid 0.5 mg IVP every 3 hours as needed for severe pain. -Zofran 4 mg IV every 8 over as needed -follow up on biopsy results. Acute kidney injury Losartan discontinued and patient started on 0.9% normal saline at 100 mL per hour. We will continue to monitor closely and repeat morning labs to watch for resolution. Hypertensive urgency: Sinus tachycardia: Anxiety Hypertension Elevated renal function, unclear if acute versus chronic -Acute kidney injury, losartan discontinued patient started on amlodipine 5 mg daily and metoprolol 25 mg twice daily. Dyslipidemia -Continue daily medication regimen with atorvastatin 20 mg daily. Type 2 diabetes mellitus -Hold Mounjaro and metformin in place patient on glycemic protocol with NovoLog sliding scale. Data reviewed: Vital signs reviewed blood pressure 161/94, heart rate 102, respiratory rate 18, temp 90 point 60s Fahrenheit, and SpO2 of 96% on room air. Morning labs reviewed. CBC revealing leukopenia with a BBC count of 3.86, hemoglobin 12.7, and platelet count of 158. BMP revealing acute kidney injury with BUN of 16.2, creatinine 1.6, and GFR of 50. CODE STATUS: Full code DVT prophylaxis: Heparin Anticipated discharge date: Clinical course to determine Anticipated discharge place: Clinical course to determine Patient was seen independently by Nurse Pracitioner. This document was prepared using [employer] dictation software. Please allow for errors in job site supervisor, while rare they do occur. Edison Ellis NP rendered care for this patient independently, reviewed the findings and plan as documented in the note above. I did not physically speak with or examine the patient on this date. Objective - Vital Signs Vital signs: Vital Signs Temp 98.6 F 07/01/23 07:23 Pulse 102 H 07/01/23 07:23 Resp 18 07/01/23 07:23 BP 161/94 07/01/23 07:23 Pulse Ox 96 07/01/23 07:23 FiO2 Intake & Output 06/30/23 07/01/23 07/01/23 18:59 06:59 18:59 Intake Total 222 Balance 222 Intake: Oral 222 Other: Voiding Method Toilet # Voids 4 1 - Labs CBC & Chem 7: 07/01/23 06:44 07/01/23 06:44 Labs: Abnormal Lab Results - Last 24 Hours (Table) 06/30/23 06/30/23 Range/Units 17:56 20:20 POC Glucose (mg/dL) 112 H 131 H (70-110) mg/dL
[2023-07-01] MEDS ORDERED: ALPRAZolam 0.5 MG TAB PO PRN (15:29)
[2023-07-01 17:11] LABS: Glucose,Whole Blood 197 mg/dL (70-110)
[2023-07-01 20:29] LABS: Glucose,Whole Blood 101 mg/dL (70-110)
[2023-07-01] MEDS: SODIUM CHLORIDE 0.9% 1,000 ML IV SCH (21:51)
[2023-07-02 07:41] LABS: Glucose,Whole Blood 99 mg/dL (70-110)
[2023-07-02] MEDS: INSULIN ASPART (NovoLOG) 100 UNIT/ML VIAL SQ SCH ×2 (07:49→12:13)
[2023-07-02 08:37] LABS: HCT 37.7 % (39.0-53.0); HGB 13.3 gm/dL (13.0-17.5); MCH 28.3 pg (25.0-35.0); MCHC 35.4 g/dL (31.0-37.0); Mean Platelet Volume 6.9; Platelet Count 180 k/uL (150-450); Poikilocytosis Slight; RBC 4.71 m/uL (4.30-5.90); RDW 14.3 % (11.5-15.5); WBC 3.8 k/uL (3.8-10.6)
[2023-07-02 09:10] LABS: ALT 10 U/L (4-49); AST 22 U/L (17-59); African American GFR (CKD) 55 (>60 ml/min/1.73 sqM); Albumin 4.1 g/dL (3.5-5.0); Albumin/Globulin Ratio 1.6; Alkaline Phosphatase 85 U/L (38-126); Anion Gap 14 mmol/L; Blood Urea Nitrogen 21 mg/dL (9-20); Calcium 9.5 mg/dL (8.4-10.2); Carbon Dioxide 20 mmol/L (22-30); Chloride 102 mmol/L (98-107); Globulin 2.5 g/dL; Glucose 101 mg/dL (74-99); Magnesium 1.6 mg/dL (1.6-2.3); Non-African American GFR(CKD) 47 (>60 ml/min/1.73 sqM); Sodium 136 mmol/L (137-145); Total Bilirubin 1.7 mg/dL (0.2-1.3); Total Protein 6.6 g/dL (6.3-8.2)
[2023-07-02] MEDS: SENNOSIDES 8.6 MG TAB PO SCH (09:15)
[2023-07-02] MEDS: ATORVASTATIN 20 MG TAB PO SCH (09:15)
[2023-07-02] MEDS: amLODIPine 5 MG TAB PO SCH (09:15)
[2023-07-02] MEDS: METOPROLOL TARTRATE 25 MG TAB PO SCH (09:15)
[2023-07-02 12:01] LABS: Glucose,Whole Blood 105 mg/dL (70-110)
[2023-07-02] MEDS: SODIUM CHLORIDE 0.9% 1,000 ML IV SCH ×2 (12:12→16:14)
[2023-07-02 12:29] VITALS: BP 145/86; PULSE 83; RESP 18; TEMP 97.7
--- NOTE | 2023-07-02 15:43 | P.DS ---
Providers Date of admission: 06/28/23 11:14 Expected date of discharge: 07/02/23 Attending physician: Joseph Gauthier MD Consults: 06/28/23 10:22 Consult Physician Urgent Consulting Provider: Mateus Keller Consult Reason/Comments: Intra-abdominal mass, lymphadenopathy Do you want consulting provider notified?: Yes 06/29/23 10:55 Consult Physician Routine Consulting Provider: Abelardo Light Consult Reason/Comments: hydronephrosis from extrinsic compression, stenting needed/able to be done? Do you want consulting provider notified?: Yes 07/02/23 13:23 Consult Physician Routine Consulting Provider: Todd Salcedo Consult Reason/Comments: hydronephrosis Do you want consulting provider notified?: Yes Primary care physician: Devon Patel [facility] Course: Discharge Diagnosis: Abdominal adenopathy right in renal intra-abdominal mass concerning for possible malignancy, patient underwent CT-guided biopsy on 06/30/23. Patient to follow- up with Dr. Keller in office next week to discuss results of pathology report. Right-sided hydroureteronephrosis secondary to obstructing hemipelvis mass. Received verbal confirmation from Dr. Salcedo that patient was evaluated by Dr. Gonzalez on 06/30/23 and cleared from a urological perspective for outpatient follow-up in their office. Dr. Salcedo stated note would be placed in chart by the end of the day today. Patient also discharged home with prescription for a repeat BMP to be completed in 3 days with results to be sent to Dr. Keller and Dr. Salcedo for follow-up and management. Intractable nausea and vomiting, resolved. Intractable abdominal pain, controlled with current medication regimen. Hyperbilirubinemia, stable Acute kidney injury. Renal function remains slightly elevated but stable. Patient also discharged home with prescription for a repeat BMP to be completed in 3 days with results to be sent to Dr. Keller and Dr. Salcedo for follow-up and management. Hypertensive urgency, resolved. Losartan was discontinued secondary to acute kidney injury and patient was discharged home on amlodipine 5 mg daily metoprolol 25 mg twice daily. Sinus tachycardia, resolved Dyslipidemia. Continue daily medication regimen with atorvastatin 20 mg daily. Type 2 diabetes mellitus. Patient may resume Mounjaro and metformin. Hospital Course: Patient is a very pleasant 57-year-old male with a past medical history of hypertension, dyslipidemia, and type II uiw-[id number] diabetes. Pt presented to the hospital on 06/28/23 with abdominal pain, nausea or vomiting. He underwent full evaluation in the emergency department. Labs completed and reviewed. CBC showing no significant abnormalities. BMP revealing elevated renal function with BUN of 22, creatinine 1.33, and GFR of 60 with no previous labs for comparison therefore acute kidney injury versus chronic kidney disease. Lactate was normal findings at 1.3. Liver profile showing elevated total bili of 2.1 and otherwise normal findings. LDH 241. Urinalysis is positive for ketones negative for blood or infection. CT abdomen and pelvis completed revealing right-sided hydronephrosis with hydroureter extending to a right hemipelvic mass measuring approximately 8.3 x 5.3 cm with enlarged lymph nodes seen within right deep iliac chain measuring 2.9 x 2.8 cm, right common iliac chain adenopathy measuring 2.3 cm, and splenomegaly. Patient admitted under our services with consultation to hematology/oncology and urology. Received verbal confirmation from Dr. Salcedo that patient was evaluated by Dr. Gonzalez on 06/30/23 and cleared from a urological perspective for outpatient follow-up in their office. He underwent CT guided biopsy on 06/30/23. Losartan was discontinued and patient was started on amlodipine 5 mg daily and metoprolol 25 mg twice daily. Hypertensive urgency and tachycardia has resolved. Blood pressures stable. Patient reports pain is currently controlled under current pain medication regimen. Discussed with oncology patient to be discharged home with one-week supply of pain medication, antiemetics, and anti-anxiolytics. Patient to follow-up with hematology/oncology office in one week for pathology report. Oncologist stated patient to follow-up in their office within a week. Physical exam: Vital signs reviewed and stable. General: Nontoxic, no distress and appears stated age. Derm: Skin warm and dry, normal coloration for ethnicity. Head: Atraumatic, normocephalic and symmetric. Eyes: EOMs intact, no lid lag, and anicteric sclera Mouth: no lip lesions, mucus membranes moist Cardiovascular: regular rate and rhythm with normal S1S2, no murmur, positive posterior tibial pulses bilaterally, and cap refill < 2 seconds. Lungs: Respirations even, regular, and unlabored on room air. Lungs CTA bilaterally, no rhonchi, no rales, no wheezing, and no accessory muscle usage. Abdominal: soft, patient with tenderness to right lower flank, no CVA tenderness Ext: No gross muscle atrophy, no edema, no contractures movement and sensation intact. Patient ambulatory in room with a steady gait. Neuro: Speech clear, face symmetrical and CN II-XII grossly intact with no noted focal neuro deficits. GCS 15. Psych: Alert and oriented to person, place, time, and situation. Appropriate and pleasant affect. A total of 34 minutes of time were spent preparing this complex discharge summary. Pt was discharged on 07/02/23 at 3:32 PM. Patient was seen independently by Nurse Practitioner. This document was prepared using [employer] dictation software. Please allow for errors in retail sales vitamin consultant while rare they do occur. Edison Ellis NP rendered care for this patient independently, reviewed the findings and plan as documented in the note above. I did not physically speak with or examine the patient on this date Patient Condition at Discharge: Stable Plan - Discharge Summary Discharge Rx Participant: No New Discharge Prescriptions: New HYDROcodone/APAP 5-325MG [[place] 5-325] 1 each PO Q4HR PRN #42 tab PRN Reason: Moderate Pain (Scale 4 To 6) amLODIPine [Norvasc] 5 mg PO DAILY 30 Days #30 tab ALPRAZolam [Xanax] 0.5 mg PO TID PRN #15 tab PRN Reason: Anxiety Prochlorperazine [Compazine] 10 mg PO Q6H PRN #40 tab PRN Reason: Nausea And Vomiting Metoprolol Tartrate [Lopressor] 25 mg PO BID 30 Days #60 tab Continue metFORMIN HCL 1,000 mg PO HS PRN PRN Reason: Blood Sugar - High Tirzepatide [Mounjaro] 12.5 mg SQ MO Ibuprofen [Motrin] 800 mg PO TID PRN PRN Reason: Pain Atorvastatin [Lipitor] 20 mg PO DAILY metFORMIN HCL 1,000 mg PO DAILY Discontinued Losartan [Cozaar] 25 mg PO DAILY Discharge Medication List Atorvastatin [Lipitor] 20 mg PO DAILY 06/28/23 [History] Ibuprofen [Motrin] 800 mg PO TID PRN 06/28/23 [History] Tirzepatide [Mounjaro] 12.5 mg SQ MO 06/28/23 [History] metFORMIN HCL 1,000 mg PO DAILY 06/28/23 [History] metFORMIN HCL 1,000 mg PO HS PRN 06/28/23 [History] ALPRAZolam [Xanax] 0.5 mg PO TID PRN #15 tab 07/02/23 [Rx] HYDROcodone/APAP 5-325MG [[place] 5-325] 1 each PO Q4HR PRN #42 tab 07/02/23 [Rx] Metoprolol Tartrate [Lopressor] 25 mg PO BID 30 Days #60 tab 07/02/23 [Rx] Prochlorperazine [Compazine] 10 mg PO Q6H PRN #40 tab 07/02/23 [Rx] amLODIPine [Norvasc] 5 mg PO DAILY 30 Days #30 tab 07/02/23 [Rx] Follow up Appointment(s)/Referral(s): Mateus Keller MD [STAFF PHYSICIAN] - 1 Week Todd Salcedo MD [STAFF PHYSICIAN] - 1 Week Devon Keane MD [Primary Care Provider] - 1-2 days Ambulatory/Diagnostic Orders: Basic Metabolic Panel [LAB.AMB] Time Frame: 3 Days, Location: None Selected Patient Instructions/Handouts: Hydronephrosis (DC) Activity/Diet/Wound Care/Special Instructions: Activity: As tolerated. Take breaks as needed. Diet: Heart healthy and carb consistent diet. Avoid salts, or foods with hidden salts such as canned or boxed foods and frozen dinners. Extra salt makes your heart work harder and traps the fluid in your body for longer. Special Instructions: Take all of your medications as directed and remember to keep all of your doctor's appointments and follow-up as needed. Thank you for allowing us to participate in your care, it was truly a pleasure having you for our patient!!! Discharge Disposition: HOME SELF-CARE
--- NOTE | 2023-07-03 07:11 | P.GSCN ---
History of Present Illness Consult date: 06/30/23 History of present illness: 57 yo male with dm , htn comes to the hospital with persistent abdominal pain. He has an 80 lb weight loss in the last year. He had a ct scan that identified a rt pelvic mass with some mild right hydronephrosis.. He has no flank pain THere is no history of urological issues including stones, uti or hematuria. Review of Systems All systems: negative - Constitutional Denies fever, Denies weight loss - EENT Eyes: denies blurred vision Ears, nose, mouth and throat: Denies dysphagia - Cardiovascular Denies chest pain, Denies shortness of breath - Respiratory Denies cough, Denies 7 - Gastrointestinal Reports as per HPI - Genitourinary Denies dysuria, Denies hematuria - Integumentary Denies rash, Denies unusual bruising - Neurological Denies headaches, Denies syncope - Hematologic/Lymphatic Denies easy bleeding, Denies easy bruising Past Medical History Past Medical History: Diabetes Mellitus, Hypertension History of Any Multi-Drug Resistant Organisms: None Reported Past Surgical History: No Surgical Hx Reported Additional Past Surgical History / Comment(s): Cyst removed from right knee in 1981 Past Anesthesia/Blood Transfusion Reactions: No Reported Reaction Past Psychological History: No Psychological Hx Reported Smoking Status: Never smoker Past Alcohol Use History: None Reported Past Drug Use History: None Reported - Past Family History Mother Family Medical History: Congestive Heart Failure (CHF), Diabetes Mellitus, Myocardial Infarction ([place]), Renal Disease Father Family Medical History: Myocardial Infarction ([place]) Medications and Allergies Home Medications Medication Instructions Recorded Confirmed Type Atorvastatin [Lipitor] 20 mg PO DAILY 06/28/23 06/28/23 History Ibuprofen [Motrin] 800 mg PO TID PRN 06/28/23 06/28/23 History Tirzepatide [Mounjaro] 12.5 mg SQ MO 06/28/23 06/28/23 History metFORMIN HCL 1,000 mg PO DAILY 06/28/23 06/28/23 History metFORMIN HCL 1,000 mg PO HS PRN 06/28/23 06/28/23 History ALPRAZolam [Xanax] 0.5 mg PO TID PRN #15 tab 07/02/23 Rx HYDROcodone/APAP 5-325MG [[place] 1 each PO Q4HR PRN #42 tab 07/02/23 Rx 5-325] Metoprolol Tartrate [Lopressor] 25 mg PO BID 30 Days #60 tab 07/02/23 Rx Prochlorperazine [Compazine] 10 mg PO Q6H PRN #40 tab 07/02/23 Rx amLODIPine [Norvasc] 5 mg PO DAILY 30 Days #30 tab 07/02/23 Rx Allergies Allergy/AdvReac Type Severity Reaction Status Date / Time No Known Allergies Allergy Verified 06/28/23 13:50 Surgical - Exam Vital Signs Temp Pulse Resp BP Pulse Ox 98 F 112 H 18 156/93 98 06/28/23 08:21 06/28/23 08:21 06/28/23 08:21 06/28/23 08:21 06/28/23 08:21 - General well developed, well nourished, no distress - Eyes normal ocular movement, no icteric - ENT no hearing loss, no congestion - Neck no masses, trachea midline - Respiratory normal respiratory effort, clear to auscultation - Abdomen Abdomen: soft, non tender, no guarding, no rigid, no rebound - Integumentary no rash, no abnormal pigmentation - Neurologic no disoriented, no combative - Psychiatric oriented to time, oriented to person, oriented to place, speech is normal, memory intact Results - Labs 07/02/23 07:58 07/02/23 07:58 Abnormal Lab Results - Last 24 Hours (Table) 06/29/23 06/29/23 06/29/23 Range/Units 04:20 04:20 17:16 Est GFR (CKD-EPI) 54 L (>=60) POC Glucose (mg/dL) 126 H (70-110) mg/dL Hemoglobin A1c 6.2 H (<=6.0) % 06/29/23 Range/Units 20:05 Est GFR (CKD-EPI) (>=60) POC Glucose (mg/dL) 149 H (70-110) mg/dL Hemoglobin A1c (<=6.0) % Diabetes panel 06/29/23 06/29/23 Range/Units 04:20 04:20 Sodium 139 (135-145) mmol/L Potassium 4.0 (3.5-5.5) mmol/L Chloride 103 (96-109) mmol/L Carbon Dioxide 26.0 (21.6-31.8) mmol/L BUN 20.0 (9.0-27.0) mg/dL Creatinine 1.5 (0.6-1.5) mg/dL Glucose 99 (70-110) mg/dL Hemoglobin A1c 6.2 H (<=6.0) % Calcium 9.1 (8.7-10.3) mg/dL Calcium panel 06/29/23 Range/Units 04:20 Calcium 9.1 (8.7-10.3) mg/dL Pituitary panel 06/29/23 Range/Units 04:20 Sodium 139 (135-145) mmol/L Potassium 4.0 (3.5-5.5) mmol/L Chloride 103 (96-109) mmol/L Carbon Dioxide 26.0 (21.6-31.8) mmol/L BUN 20.0 (9.0-27.0) mg/dL Creatinine 1.5 (0.6-1.5) mg/dL Glucose 99 (70-110) mg/dL Calcium 9.1 (8.7-10.3) mg/dL Adrenal panel 06/29/23 Range/Units 04:20 Sodium 139 (135-145) mmol/L Potassium 4.0 (3.5-5.5) mmol/L Chloride 103 (96-109) mmol/L Carbon Dioxide 26.0 (21.6-31.8) mmol/L BUN 20.0 (9.0-27.0) mg/dL Creatinine 1.5 (0.6-1.5) mg/dL Glucose 99 (70-110) mg/dL Calcium 9.1 (8.7-10.3) mg/dL - Imaging CT scan - abdomen: report reviewed, image reviewed CT scan - pelvis: report reviewed, image reviewed Assessment and Plan Assessment: Impression: right hydronephrosis, mil. Pelvic mass probably lymphoma Plan: at present I donot think that a stent is necessary and can reassess after a diagnosis and treatment plan is made
--- NOTE | 2023-07-07 13:06 | CDI ---
Documentation Clarification Form Date: 07/07/23 From: Vielka Lee Admit Date: 06/28/2023 11:14:00 AM Patient Name: Antolin Strong Visit Number: [id number] Discharge Date: 07/02/2023 05:07:00 PM ATTENTION: The Clinical Documentation Specialists (CDI) and [facility] Coding Staff appreciate your assistance in clarifying documentation. Please respond to the clarification below the line at the bottom and electronically sign. The CDI & [facility] Coding staff will review the response and follow-up if needed. Please note: Queries are made part of the Legal Health Record. If you have any questions, please contact the author of this message via ITS. Dr. Justin, The final diagnosis of the pathology report 06/30/23 states: lymphoid infiltrates w focal fibrosis and positive CD30 cells raises possibility of Hodgkins lymphoma. Uroconsult on 06/30/23 = Pelvic mass with probable lymphoma Coding guidelines do not allow coding professionals to code based on pathology results; therefore, clarification is requested. History/risk factors: abdominal lymphadenopathy with hydronephrosis. Clinical Indicators: abdominal pain, N & V, hydronephosis and acute kidney faiure. Treatment: CT guided biopsy intra abdominal mass Please clarify if you agree with the pathology report diagnosis of possible Hodgkins Lymphoma? [ ] Yes [ ] No [ X ] Other (please specify) [ ] Unable to determine Pathology report not available to time of discharge, was not signed until 07/06. EDGARD
== END 2023-07-02 17:07 | disposition home or self-care (01) | DRG 844 ==
LOC: EC 08:14 → 5NMEDONC 11:14
PROVIDERS: ADMIT Student in an Organized Health Care Education/Training Program; ATTEND Student in an Organized Health Care Education/Training Program
PROC: 0W9G3ZX Drainage of Peritoneal Cavity, Percutaneous Approach, Diagnostic (ICD-10-PCS; principal; 2023-06-30)
DX: C48.0 Malignant neoplasm of retroperitoneum (principal); N13.6 Pyonephrosis; N17.9 Acute kidney failure, unspecified; I16.0 Hypertensive urgency; E78.5 Hyperlipidemia, unspecified; R59.0 Localized enlarged lymph nodes; I10 Essential (primary) hypertension; Z79.84 Long term (current) use of oral hypoglycemic drugs; Z79.899 Other long term (current) drug therapy; Z82.49 Family history of ischemic heart disease and other diseases of the circulatory system; Z83.3 Family history of diabetes mellitus; Z87.442 Personal history of urinary calculi; K80.20 Calculus of gallbladder without cholecystitis without obstruction; Z79.1 Long term (current) use of non-steroidal anti-inflammatories (NSAID); Z28.311 Partially vaccinated for COVID-19; Z28.21 Immunization not carried out because of patient refusal
CPT/HCPCS: 36415; 49180; 70491; 71260; 74176; 77012; 80048; 80053; 81003; 83036; 83605; 83615; 83690; 83735; 85025; 85027; 85610; 88184; 88185; 88305; 88341; 88342; 96361; 96374; 96375; 99285

== ENCOUNTER → 2023-07-13 | Outpatient (CLI) | payer BC ==
--- NOTE | 2023-07-14 16:25 | PE ---
EXAMINATION TYPE: PET CT fusion skull to thigh DATE OF EXAM: 07/13/2023 COMPARISON: CT abdomen 06/28/2023 Prior PET/CT: None HISTORY: Pancreatic mass TECHNIQUE: Following the intravenous administration of 10.4 mCi of F-18 FDG, whole body images are p erformed from the skull base to the midthigh. Images are reviewed on the computer in the coronal, ax ial, and sagittal planes. Reconstructed rotating images are created on independent workstation and r eviewed on the computer. A localization and attenuation correction CT is performed in conjunction w ith the PET scan. DLP: 435.32 mGycm SCAN: Initial Blood glucose: 114 mg/dL Average Mediastinum SUV: 1.79 Average Liver SUV: 3.2 FINDINGS: NECK: No abnormal uptake THORAX: No abnormal uptake ABDOMEN: There are at least 3 foci of uptake within the spleen. Example image 118, SUV 15.91 medially and 16.53 laterally. There is a large focus of increased uptake within the inferior spleen with an S UV of 18.04. Image 141. PELVIS: A right common iliac chain large focus of radiotracer is present, image 187 is the 18th 0.18. Large masses in the right lower quadrant, SUV 20.22. Normal uptake within the urinary bladder is pre sent and separate. OSSEOUS STRUCTURES: No abnormal uptake LOCALIZATION CT: Splenic masses are poorly visualized on the noncontrast localization CT. Uptake with in the anterior right hemipelvis correlates with the soft tissue mass. Some prostate hypertrophy appe ars to be present. IMPRESSION: 1. Uptake within the spleen at least 3 large foci compatible with metastatic lesions. 2. Large mass right hemipelvis with marked uptake compatible with neoplasm. 3. No discrete pancreatic uptake is evident.
== END | disposition home or self-care (01) ==
LOC: RADPETMAIN 11:23
PROVIDERS: ATTEND Internal Medicine Hematology & Oncology
DX: C25.8 Malignant neoplasm of overlapping sites of pancreas (principal); D73.89 Other diseases of spleen
CPT/HCPCS: 78815; A9552

== ENCOUNTER 2023-08-17 12:42 | Day surgery (SDC) | payer BC ==
[2023-08-16 13:41] VITALS: BMI 25.1
[~2023-08-17 12:42] MED LIST: DEXAMETHASONE SOD PHOSPHATE 4 MG/ML 1 ML VIAL IV ONE; HYDROmorphone 0.5 MG/0.5 ML SYRINGE IVP PRN; LACTATED RINGERS 1,000 ML IV SCH; LIDOCAINE 1% (10MG/ML) FOR IV START INTRADERMA PRN; ONDANSETRON 4 MG/2 ML VIAL IVP ONE; droPERidol 5 MG/2 ML VIAL IVP ONE
[2023-08-17 13:43] LABS: Basophils % (A) 0 %; Eosinophils # (A) 0.1 k/uL (0-0.7); Eosinophils % (A) 2 %; HCT 36.6 % (39.0-53.0); HGB 12.6 gm/dL (13.0-17.5); Lymphocytes # (A) 0.7 k/uL (1.0-4.8); Lymphocytes % (A) 17 %; MCH 27.7 pg (25.0-35.0); MCHC 34.6 g/dL (31.0-37.0); MCV 80.2 fL (80.0-100.0); Mean Platelet Volume 7.3; Monocytes # (A) 0.4 k/uL (0-1.0); Monocytes % (A) 10 %; Neutrophils # (A) 2.8 k/uL (1.3-7.7); Neutrophils % (A) 68 %; Platelet Count 149 k/uL (150-450); Poikilocytosis Slight; RBC 4.56 m/uL (4.30-5.90); RDW 14.8 % (11.5-15.5); WBC 4.1 k/uL (3.8-10.6)
[2023-08-17 13:44] LABS: Glucose,Whole Blood 110 mg/dL (70-110)
[2023-08-17] MEDS ORDERED: ceFAZolin 1,000 MG VIAL ONE (13:45)
[2023-08-17] MEDS ORDERED: LIDOCAINE 1% INJ 10MG/ML (20 ML MDV) ONE (13:45)
[2023-08-17] MEDS ORDERED: SODIUM CHLORIDE 0.9% 100 ML BAG ONE (13:45)
[2023-08-17] MEDS ORDERED: fentaNYL (PF) 50 MCG/ML 2 ML AMP ONE (13:45)
[2023-08-17] MEDS ORDERED: MIDAZOLAM 2 MG/2 ML VIAL ONE (13:45)
[2023-08-17] MEDS ORDERED: SUCCINYLCHOLINE CHLORIDE 200 MG/10 ML VIAL IV ONE (13:45)
[2023-08-17] MEDS ORDERED: PROPOFOL 10 MG/ML 20 ML VIAL IV ONE (13:45)
[2023-08-17] MEDS ORDERED: SODIUM CHLORIDE 0.9% 50 ML with ceFAZolin 2,000 MG IV ONE ×2 (13:50)
[2023-08-17] MEDS ORDERED: HEPARIN SODIUM,PORCINE 10,000 UNIT in SODIUM CHLORIDE 0.9% 1,000 ML IRRIGATION ONE (14:23)
[2023-08-17] MEDS ORDERED: LIDOCAINE 1% INJ 10MG/ML (20 ML MDV) SQ ONE (14:24)
--- NOTE | 2023-08-17 14:51 | P.OP ---
Date of Procedure: 08/17/23 Description of Procedure: DATE OF PROCEDURE: 08 17 2023 PREOPERATIVE DIAGNOSIS: Need for chemotherapy, lymphoma PROCEDURE: 1. Ultrasound-guided right internal jugular vein access. 2. Placement of a subcutaneous port with central venous access PROCEDURE: The patient was brought to the operating room placed in supine position. The bilateral necks were prepped and draped in usual sterile fashion. A preprocedure timeout was performed, all parties were in agreement. Using ultrasound the right internal jugular was identified. The site overlying the vein was anesthetized with 1% lidocaine plain and an access needle was used to gain access to the internal jugular vein with return of dark venous, no npulsatile blood. Seldinger technique was used and a wire was left in place Attention was then turned towards the pocket. About 2-3 finger breaths from the clavicle, the area was anesthetized and incision was made. Subcutaneous pocket was created.. The chest wall was anesthetized with 1% lidocaine plain. The catheter was then tunneled between the locations. Using Seldinger technique and fluoroscopic assistance, the tear-away sheath was placed over the wire. T The inner cannula and wire were removed. The previously measured catheter catheter was placed in the tear-away sheath was removed in standard fashion. The catheter showed good positioning was final resting place in the cavoatrial junction. The subcu transport was secured with interrupted sutures of 3-0 Prolene The port aspirated and flushed freely with a Wallace needle.. The incision at the neck was reapproximated with interrupted sutures of 4-0 Vicryl. The subcutaneous port site was reapproximated with interrupted sutures of 3-0 Vicryl followed by running 4-0 Monocryl in subcuticular fashion. Dressings were placed. The patient was allowed to awaken from anesthesia and transferred to recovery in stable condition having tolerated the procedure well. A post procedure chest x-ray is pending Plan - Discharge Summary Discharge Rx Participant: Yes New Discharge Prescriptions: No Action ALPRAZolam [Xanax] 0.5 mg PO TID PRN #15 tab PRN Reason: Anxiety Prochlorperazine [Compazine] 10 mg PO Q6H PRN #40 tab PRN Reason: Nausea And Vomiting HYDROcodone/APAP 5-325MG [[place] 5-325] 1 each PO Q4HR PRN PRN Reason: Pain Atorvastatin [Lipitor] 20 mg PO DAILY Metoprolol Tartrate [Lopressor] 25 mg PO BID 30 Days #60 tab amLODIPine [Norvasc] 5 mg PO QAM Tirzepatide [Mounjaro] 5 mg SQ MO Discharge Medication List Atorvastatin [Lipitor] 20 mg PO DAILY 06/28/23 [History] ALPRAZolam [Xanax] 0.5 mg PO TID PRN #15 tab 07/02/23 [Rx] Metoprolol Tartrate [Lopressor] 25 mg PO BID 30 Days #60 tab 07/02/23 [Rx] Prochlorperazine [Compazine] 10 mg PO Q6H PRN #40 tab 07/02/23 [Rx] HYDROcodone/APAP 5-325MG [[place] 5-325] 1 each PO Q4HR PRN 08/16/23 [History] Tirzepatide [Mounjaro] 5 mg SQ MO 08/16/23 [History] amLODIPine [Norvasc] 5 mg PO QAM 08/16/23 [History] Follow up Appointment(s)/Referral(s): Samina Gómez DO [STAFF PHYSICIAN] - 10 Days Activity/Diet/Wound Care/Special Instructions: May shower starting tomorrow. May resume regular home medications. May utilized port when needed. We will follow off on its own. Discharge Disposition: HOME SELF-CARE
[2023-08-17 15:11] VITALS: TEMP 98
--- NOTE | 2023-08-17 15:15 | FL ---
EXAMINATION TYPE: FL guided central line placemt HISTORY: Fluoroscopy time Impression: 1. Fluoroscopy support provided to the referring physician.
[2023-08-17 15:36] VITALS: RESP 16
--- NOTE | 2023-08-17 15:52 | XR ---
EXAMINATION TYPE: XR chest 1V portable DATE OF EXAM: 08/17/2023 COMPARISON: NONE HISTORY: Port placement TECHNIQUE: Single frontal view of the chest is obtained. FINDINGS: Elevated right hemidiaphragm with bilateral lower lobe consolidation. Mediport tip overlyi ng the seen. No sizable pneumothorax. Diffuse osteopenia throughout shoulders. IMPRESSION: 1. Basilar atelectasis or early joint. Favor atelectasis secondary to reduced inspiration. 2. No pneumothorax. Mediport seen with tip overlying the SVC.
[2023-08-17 16:00] VITALS: BP 117/65; PULSE 89
== END 2023-08-17 16:05 | disposition home or self-care (01) ==
LOC: OR 12:42
PROVIDERS: ATTEND Surgery
DX: C85.90 Non-Hodgkin lymphoma, unspecified, unspecified site (principal); I10 Essential (primary) hypertension; E11.9 Type 2 diabetes mellitus without complications; Z79.84 Long term (current) use of oral hypoglycemic drugs; Z98.890 Other specified postprocedural states; Z79.899 Other long term (current) drug therapy; Z51.11 Encounter for antineoplastic chemotherapy
CPT/HCPCS: 36561; 85025; 77001; 71045; C1788; J2250; J0330; J1644; J1100; J2405; J0690; J2001; J3010; J1642; J2704

== ENCOUNTER → 2023-08-18 | Outpatient (CLI) | payer BC ==
--- NOTE | 2023-08-18 18:08 | CA ---
Transthoracic Echo Report Name: Antolin Strong Age: 57 Gender: M : 1965 Exam Date: 08/18/2023 15:46 Exam Location: [facility] Ht (in): 70 Wt (lb): 175 Ordering Physician: Nikko Dos Santos MD Attending/Referring Phys: Staff [employer]ine Warfare Officer Nicolette Alejandro RDCS Procedure CPT: Indications: S09.92XA UNSPECIFIED INJURY OF NOSE Cardiac Hx: Technical Quality: Fair Contrast 1: Total Dose (mL): Contrast 2: Total Dose (mL): MEASUREMENTS (Male / Female) Normal Values 2D ECHO LV Diastolic Diameter PLAX 3.4 cm 4.2 - 5.9 / 3.9 - 5.3 cm LV Systolic Diameter PLAX 2.3 cm IVS Diastolic Thickness 1.2 cm 0.6 - 1.0 / 0.6 - 0.9 cm LVPW Diastolic Thickness 1.5 cm 0.6 - 1.0 / 0.6 - 0.9 cm LV Relative Wall Thickness 0.8 RV Internal Dim ED PLAX 4.4 cm LA Volume 49.0 cm??? 18 - 58 / 22 - 52 cm??? LA Volume Index 24.7 cm???/m??? 16 - 28 cm???/m??? M-MODE Aortic Root Diameter MM 3.4 cm LA Systolic Diameter MM 4.0 cm LA Ao Ratio MM 1.2 AV Cusp Separation MM 2.2 cm DOPPLER AV Peak Velocity 145.5 cm/s AV Peak Gradient 8.5 mmHg AV Mean Velocity 100.4 cm/s AV Mean Gradient 4.6 mmHg AV Velocity Time Integral 26.7 cm LVOT Peak Velocity 140.5 cm/s LVOT Peak Gradient 7.9 mmHg LVOT Velocity Time Integral 23.8 cm MV Area PHT 6.2 cm??? Mitral E Point Velocity 78.7 cm/s Mitral A Point Velocity 101.5 cm/s Mitral E to A Ratio 0.8 MV Deceleration Time 122.1 ms MV E' Velocity 10.4 cm/s Mitral E to MV E' Ratio 7.5 TR Peak Velocity 264.7 cm/s TR Peak Gradient 28.0 mmHg Right Ventricular Systolic Press 31.7 mmHg FINDINGS Left Ventricle Mildly increased left ventricular wall thickness. Left ventricular cavity size normal. Normal left ventricular systolic function with no obvious regional wall motion abnormalities. Left ventricular ejection fraction is estimated at 55-60 %. Right Ventricle Moderate right ventricular dilatation. Right ventricular systolic pressure within normal limits. Right Atrium Normal right atrial size. Left Atrium Normal left atrial size. Mitral Valve Structurally normal mitral valve. Mitral valve thickened. Mild mitral annular calcification. Aortic Valve Trileaflet aortic valve. No aortic valve stenosis or regurgitation. Tricuspid Valve Structurally normal tricuspid valve. Mild tricuspid regurgitation. Pulmonic Valve Structurally normal pulmonic valve. Trace pulmonic regurgitation. Pericardium No pericardial effusion. Aorta Normal size aortic root and proximal ascending aorta. CONCLUSIONS Left ventricular ejection fraction is estimated at 55-60 %. No obvious regional wall motion abnormalities. Mildly increased left ventricular wall thickness. No significant valvular dysfunction No significant chamber size abnormality Previewed by: Dr Obed Camacho (Electronically Signed) Final Date: 18 August 2023 18:07
== END | disposition home or self-care (01) ==
LOC: RADECHMAIN 15:22
PROVIDERS: ATTEND Internal Medicine Hematology & Oncology
DX: Z01.818 Encounter for other preprocedural examination (principal); I51.7 Cardiomegaly; K86.2 Cyst of pancreas; D75.1 Secondary polycythemia; E78.5 Hyperlipidemia, unspecified; R79.89 Other specified abnormal findings of blood chemistry; S09.92XA Unspecified injury of nose, initial encounter; X58.XXXA Exposure to other specified factors, initial encounter
CPT/HCPCS: 93306

== ENCOUNTER → 2023-09-22 | Outpatient (CLI) | payer BC ==
--- NOTE | 2023-09-22 10:52 | US ---
EXAMINATION TYPE: US venous doppler duplex LE RT DATE OF EXAM: 09/22/2023 10:23 AM COMPARISON: NONE CLINICAL INDICATION: Male, 57 years old with history of R22.40 SWELLING, MASS, LUMP LOWER LIMB; Edema right foot/right lower leg SIDE PERFORMED: right TECHNIQUE: The lower extremity deep venous system is examined utilizing real time linear array sonog radha with graded compression, doppler sonography and color-flow sonography. VESSELS IMAGED: Common Femoral Vein Deep Femoral Vein Greater Saphenous Vein * Femoral Vein Popliteal Vein Small Saphenous Vein * Proximal Calf Veins (* superficial vessels) Right Leg: No evidence of DVT. Complex anechoic area right groin = 7.3 x 3.9 x 6.3cm Grayscale, color doppler, spectral doppler imaging performed of the deep veins of the right lower ext remity. There is normal flow, compressibility, vascular waveforms. IMPRESSION: No evidence for acute DVT in the right lower extremity. Initial images show a moderate s ize nonsimple thin-walled fluid collection in the right groin. Differential includes focal hematoma. Correlate clinically.
== END | disposition home or self-care (01) ==
LOC: RADUSWWP 10:00
PROVIDERS: ATTEND Family Medicine
DX: R22.40 Localized swelling, mass and lump, unspecified lower limb (principal)

== ENCOUNTER → 2023-10-26 | Outpatient (CLI) | payer BC ==
--- NOTE | 2023-10-26 11:17 | US ---
EXAMINATION TYPE: US venous doppler duplex LE BI DATE OF EXAM: 10/26/2023 10:03 AM COMPARISON: NONE CLINICAL INDICATION: Male, 57 years old with history of R22.43 PARTH LEG SWELLING; SIDE PERFORMED: TECHNIQUE: The lower extremity deep venous system is examined utilizing real time linear array sonog radha with graded compression, doppler sonography and color-flow sonography. VESSELS IMAGED: Common Femoral Vein Greater saphenous Deep femoral vein Femoral Vein Popliteal Vein Proximal Calf Veins (* superficial vessels) Right Leg: Complex, cystic mass right groin as visualized on prior= 5.4 x 2.6 x 5.4 cm/ Negative fo r DVT Left Leg: Negative for DVT IMPRESSION: 1. No diagnostic evidence of DVT bilaterally. 2. Large complex mass, necrotic lymph node or fluid collection right groin measuring 5.4 cm
--- NOTE | 2023-10-30 21:09 | PE ---
EXAMINATION TYPE: PET CT fusion skull to thigh DATE OF EXAM: 10/26/2023 COMPARISON: 06/28/2023 Prior PET/CT: 07/13/2023 HISTORY: Pelvic masses, pancreatic mass TECHNIQUE: Following the intravenous administration of 12.96 mCi of F-18 FDG, whole body images are performed from the skull base to the midthigh. Images are reviewed on the computer in the coronal, a xial, and sagittal planes. Reconstructed rotating images are created on independent workstation and reviewed on the computer. A localization and attenuation correction CT is performed in conjunction with the PET scan. DLP: 561.32 mGycm SCAN: Subsequent Blood glucose: 167 mg/dL Average Mediastinum SUV: 1.68 Average Liver SUV: 3.05 FINDINGS: NECK: No abnormal uptake THORAX: No abnormal uptake ABDOMEN: Attention is paid to the pancreas. Suspicious uptake within the pancreas is not identified. Previous large pancreatic areas of uptake are not identified on the current exam. Extremely subtle mi ld increase may be within the medial mid spleen, example image 126, SUV 3.87. No suspicious uptake otherwise evident within the abdomen PELVIS: Previous uptake along the right lateral pelvic wall has some mild residual in the anterior so ft tissues, example image 219, SUV 8.45. Residual metastatic disease likely present. OSSEOUS STRUCTURES: No abnormal uptake LOCALIZATION CT: There is a large hypodense area within the right inguinal region. No suspicious upta ke is evident. A prominent lymph node or cyst may be present. Cholelithiasis is present. COMPARISON: Uptake within the spleen has largely resolved. There is significant diminished uptake wit hin the right hemipelvis IMPRESSION: 1. Significant improvement of suspected pancreatic masses within the spleen and right hemipelvis. 2. Minimal residual may remain with mild increased uptake, greater in the right hemipelvis soft tissu es
== END | disposition home or self-care (01) ==
LOC: RADPETMAIN 07:39
PROVIDERS: ATTEND Internal Medicine Hematology & Oncology
DX: C25.8 Malignant neoplasm of overlapping sites of pancreas (principal); R22.43 Localized swelling, mass and lump, lower limb, bilateral; K86.89 Other specified diseases of pancreas; K86.2 Cyst of pancreas; D75.1 Secondary polycythemia; E78.5 Hyperlipidemia, unspecified; I10 Essential (primary) hypertension; R79.89 Other specified abnormal findings of blood chemistry; Z71.3 Dietary counseling and surveillance
CPT/HCPCS: 93970; 78815; A9552

== ENCOUNTER → 2024-01-12 | Outpatient (CLI) | payer BC ==
[2024-01-12 10:06] LABS: African American GFR (CKD) >90 (>60 ml/min/1.73 sqM); Blood Urea Nitrogen 11 mg/dL (9-20); Non-African American GFR(CKD) 79 (>60 ml/min/1.73 sqM)
--- NOTE | 2024-01-12 12:35 | CT ---
EXAMINATION TYPE: CT ChestAbdPelvis w con CT DLP: 1922 mGycm, Automated exposure control for dose reduction was used. DATE OF EXAM: 01/12/2024 11:42 AM COMPARISON: Pet/CT 10/26/2023. CLINICAL INDICATION:Male, 58 years old with history of C83.30 DIFFUSE LARGE B-CELL LYMPHOMA, UNSPECIF IED; [facility], lymphoma Technique: CT ChestAbdPelvis w con; Multiple axial images were obtained. Two-dimensional coronal and sagittal reconstructions were obtained. Contrast used:100 mL of Isovue 300 with IV Contrast, Oral contrast used: with Oral Contrast Findings: CHEST: LUNGS/ PLEURA: No focal consolidation, pneumothorax or pleural effusion. AIRWAY: Patent and unremarkable. HEART: Size within normal limits. MEDIASTINUM: No gross evidence of adenopathy. VASCULATURE: No aortic aneurysm. Right chest wall [id number] with tip terminating in the superior vena cava. MUSCULOSKELETAL: No acute osseous abnormalities. SOFT TISSUES/LYMPH NODES: Unremarkable. LOWER NECK: No significant findings. ABDOMEN: ABDOMEN LIVER: Unremarkable GALLBLADDER AND BILE DUCTS: Layering gallstones in the gallbladder lumen. PANCREAS: Unremarkable. SPLEEN: Scattered hypodense areas are seen throughout the spleen. ADRENAL GLANDS: Unremarkable. KIDNEYS AND URETERS: No evidence of hydronephrosis or renal calculus. The ureters are unremarkable. PELVIS BLADDER: Unremarkable REPRODUCTIVE: Unremarkable. ABDOMEN & PELVIS STOMACH AND BOWEL: No evidence of bowel obstruction. Second portion duodenal diverticulum. Scattered colonic diverticula. PERITONEUM: No evidence of pneumoperitoneum or free fluid. VASCULATURE: No evidence of aortic aneurysm. MUSCULOSKELETAL: No acute osseous abnormalities LYMPH NODES: Lymphadenopathy within the pelvis along the right iliac chain measuring 14 mm, previousl y 21 mm and anterior laterally measuring 11 mm previously 13 mm. Soft tissue along the right external iliac artery is also decreased now measuring 21 mm, previously 31 mm. SOFT TISSUE/ABDOMINAL WALL: Right inguinal cystic lesion measuring 3.7 cm. Previously measuring 2.7 c m in shortest dimension on 10/26/2023. IMPRESSION: 1. Decrease in lymph node size along the right common and external iliac chains. 2. Hypoattenuating lesions throughout the spleen possibly representing patient's known history of ly mphoma. No uptake was seen on prior PET/CT to 10/26/2023. 3. Right inguinal cystic lesion which could be sequela prior intervention and/or necrotic lymph node . Correlate with history. Consider ultrasound. This has mildly increased in size from prior PET/CT. 3. No additional enlarged lymph nodes which are greater than 1.0 cm in short axis.
== END | disposition home or self-care (01) ==
LOC: RADCTMAIN 09:29
PROVIDERS: ATTEND Internal Medicine Hematology & Oncology
DX: C83.30 Diffuse large B-cell lymphoma, unspecified site (principal); D73.89 Other diseases of spleen; K86.2 Cyst of pancreas; D75.1 Secondary polycythemia; E78.5 Hyperlipidemia, unspecified; E11.9 Type 2 diabetes mellitus without complications; R79.89 Other specified abnormal findings of blood chemistry; Z71.3 Dietary counseling and surveillance
CPT/HCPCS: 82565; 84520; 71260; 74177; 36415; Q9967

== ENCOUNTER → 2024-02-22 | Outpatient (CLI) | payer BC ==
--- NOTE | 2024-02-25 21:15 | PE ---
EXAMINATION TYPE: PET CT fusion skull to thigh DATE OF EXAM: 02/22/2024 CLINICAL INDICATION:Male, 58 years old with history of C83.30 LYMPHOMA; TECHNIQUE: Following the intravenous administration of 7.7 mCi of F-18 FDG, whole body images are p erformed from the skull base to the midthigh. Images are reviewed on the computer in the coronal, ax ial, and sagittal planes. Reconstructed rotating images are created on independent workstation and r eviewed on the computer. A non-contrast CT is performed in conjunction with the PET scan. Glucose l evel 90 mg/dL CT DLP: 641 mGycm, Automated exposure control for dose reduction was used. COMPARISON: CT 01/12/2024, PET/CT None, FINDINGS: Mediastinal SUV mean is 2.1. Hepatic parenchyma SUV mean is 2.8. SKULL BASE AND NECK: No suspicious radiotracer activity. CHEST, MEDIASTINUM, AND HILAR REGION: No suspicious radiotracer activity. ABDOMEN AND PELVIS: No suspicious radiotracer activity. No FDG activity seen within the spleen correlated with prior CT 01/12/2024. MUSCULOSKELETAL STRUCTURES: No suspicious radiotracer activity. OTHER CT: Atherosclerosis at the carotid bifurcations. Coronary arteries. Right chest wall Infuse-a-P ort with tip in appropriate position. Cholelithiasis. Colonic diverticulosis. IMPRESSION: 1. No FDG activity seen within the spleen to correlate with prior CT 01/12/2024. Continued surveillan ce recommended as recurrent lymphoma not excluded at this time. 2. No suspicious radiotracer activity.
== END | disposition home or self-care (01) ==
LOC: RADPETMAIN 07:17
PROVIDERS: ATTEND Internal Medicine Hematology & Oncology
DX: C83.80 Other non-follicular lymphoma, unspecified site (principal)
CPT/HCPCS: 78815; A9552

== ENCOUNTER → 2024-05-22 | Outpatient (CLI) | payer BC ==
[2024-05-22 10:30] LABS: African American GFR (CKD) 77 (>60 ml/min/1.73 sqM); Blood Urea Nitrogen 17 mg/dL (9-20); Non-African American GFR(CKD) 66 (>60 ml/min/1.73 sqM)
--- NOTE | 2024-05-22 12:52 | CT ---
EXAMINATION TYPE: CT ChestAbdPelvis w con CT DLP: 1072 mGycm, Automated exposure control for dose reduction was used. DATE OF EXAM: 05/22/2024 12:17 PM COMPARISON: PET/CT 02/22/2024, 10/26/2023, 07/13/2023, CT chest abdomen pelvis 01/12/2024, CT abdomen and pelvis 06/28/2023, CT neck chest 06/29/2023 CLINICAL INDICATION:Male, 58 years old with history of C83.30 DIFFUSE LARGE B-CELL LYMPHOMA, UNSPECIF IED; [facility], Diffuse large B-cell lymphoma routine follow up. Technique: Multiple axial images of the chest, abdomen, and pelvis were obtained following the intrav enous administration of 100 mL Isovue-300. Oral contrast was administered. Two-dimensional coronal an d sagittal reconstructions were obtained. Findings: CHEST: LUNGS/ PLEURA: The lung parenchyma appears unremarkable. AIRWAY: Patent and unremarkable.. HEART: Size within normal limits. No pericardial effusion. MEDIASTINUM: No evidence of adenopathy. VASCULATURE: No aortic aneurysm. Right anterior chest wall Mediport catheter with distal tip termina ting at the superior cavoatrial junction. MUSCULOSKELETAL: No acute osseous abnormalities. DISH of the thoracic spine. Healed right-sided rib f ractures. SOFT TISSUES/LYMPH NODES: Unremarkable. LOWER NECK: No significant findings. ABDOMEN: ABDOMEN LIVER: Unremarkable GALLBLADDER AND BILE DUCTS: Unremarkable. PANCREAS: Unremarkable. SPLEEN: Less conspicuous appearance of previously seen ill-defined hypodense lesions within the splee n from prior CT. Mildly enlarged measuring 15.6 cm in CC dimension which is marginally decreased in s ize from prior examination where it measures 16.2 cm. ADRENAL GLANDS: Unremarkable. KIDNEYS AND URETERS: No evidence of hydronephrosis or renal calculus. The kidneys enhance symmetrical ly. Contrast is demonstrated within both collecting systems on delayed phase. Subcentimeter hypodense lesions within both kidneys that are too small to characterize but likely represent cysts. PELVIS BLADDER: Unremarkable REPRODUCTIVE: Coarse calcification of the prostate gland are identified. ABDOMEN & PELVIS STOMACH AND BOWEL: Stomach appears unremarkable. Periampullary duodenal diverticulum. Bowel wall thic kening or surrounding inflammatory changes. Enteric contrast reaches the sigmoid colon. Distal coloni c diverticulosis. The appendix is within normal limits. No evidence of bowel obstruction. PERITONEUM: No evidence of pneumoperitoneum or free fluid. VASCULATURE: No evidence of aortic aneurysm. MUSCULOSKELETAL: No acute osseous abnormalities. Partial fusion along the anterior aspect of the righ t SI joint. LYMPH NODES: Mildly decreased size of right external iliac lymph nodes measuring 0.8 and 1.0 cm short axis, previously 1.1 and 1.4 cm short axis respectively. Additional marginal decrease in size right anterior common iliac chain lymph node measuring 1.6 cm, previously 2.0 cm. Additional decreased size of right obturator lymph node measured 1.1 cm short axis, previously 1.3 cm. SOFT TISSUE/ABDOMINAL WALL: Tiny fat filled umbilical hernia. Decreased size of now 2.1 cm right ingu inal lesion, previously 3.7 cm and was more cystic. IMPRESSION: 1. Continued decrease size of right pelvic lymphadenopathy. No new lymphadenopathy. 2. Continued decrease size of right inguinal indeterminate lesion. Possibly treated metastatic disea se. 3. Less conspicuous appearance of hypodense ill-defined lesions within the spleen from prior CT. No FDG activity identified on prior PET/CT suggesting treated metastasis. Marginal decrease in size of s pleen from prior exam. [facility], , 05/22/2024 12:50 PM
== END | disposition home or self-care (01) ==
LOC: RADCTMAIN 09:50
PROVIDERS: ATTEND Internal Medicine Hematology & Oncology
DX: C83.30 Diffuse large B-cell lymphoma, unspecified site
CPT/HCPCS: 36415; 71260; 74177; 82565; 84520

== ENCOUNTER 2024-06-25 07:24 | Day surgery (SDC) | payer BC ==
[2024-06-25] MEDS ORDERED: LIDOCAINE 1% (10MG/ML) FOR IV START INTRADERMA PRN (07:54)
[2024-06-25] MEDS ORDERED: fentaNYL (PF) 50 MCG/ML 2 ML AMP IV PRN (07:54)
[2024-06-25] MEDS: IV FLUID CONTINUATION 1,000 ML IV ONE (07:55)
[2024-06-25 08:01] VITALS: RESP 16; TEMP 97.2
[2024-06-25 08:13] LABS: Glucose,Whole Blood 137 mg/dL (70-110)
[2024-06-25] MEDS: LACTATED RINGERS 1,000 ML IV SCH (08:18)
[2024-06-25] MEDS: ONDANSETRON 4 MG/2 ML VIAL IVP ONE (08:18)
[2024-06-25] MEDS: DEXAMETHASONE SOD PHOSPHATE 4 MG/ML 1 ML VIAL IVP STA (08:19)
[2024-06-25] MEDS ORDERED: KETAMINE HCL IN 0.9 % NACL 50 MG/5 ML SYRINGE ONE (08:42)
[2024-06-25] MEDS ORDERED: LIDOCAINE 1% INJ 10MG/ML (20 ML MDV) ONE (08:42)
[2024-06-25] MEDS ORDERED: fentaNYL (PF) 50 MCG/ML 2 ML AMP ONE (08:42)
[2024-06-25] MEDS ORDERED: MIDAZOLAM 2 MG/2 ML VIAL ONE (08:42)
[2024-06-25] MEDS ORDERED: PROPOFOL 10 MG/ML 20 ML VIAL IV ONE (08:42)
[2024-06-25] MEDS: LIDOCAINE 1% INJ 10MG/ML (20 ML MDV) SQ ONE ×2 (09:02)
--- NOTE | 2024-06-25 09:37 | P.OP ---
Date of Procedure: 06/25/24 Description of Procedure: Preoperative diagnosis: History of lymphoma, previous port placement Postoperative diagnosis: Same Procedure: Removal of port Surgeon: Samina Gómez D.O. EBL: Less than 5 cc IV fluids: See records Urine output: Not measured Drains: None Complications: None Condition: None immediately apparent Operative indication and findings: Patient is a 58-year-old male who previously had lymphoma who underwent chemotherapy via a chest wall port who is finished and recommended to undergo removal of his port. Risks and benefits were discussed including but not limited to bleeding and infection. He seemingly understood and was willing to proceed. Procedure in detail: Patient was brought to the operative suite and placed in supine position. The right chest was prepped and draped in usual sterile fashion. A preprocedural timeout performed, all parties were in agreement. Local was infiltrated at the upper portion of the port, incision was made carried down to the subcutaneous tissue. The previously placed sutures were removed and the port was excised. Manual pressure was held at the insertion at the internal jugular until hemostasis was adequate. The port site was then irrigated and found to be hemostatic. The incision was reapproximated with interrupted sutures of 3-0 Vicryl. The skin was reapproximated with running 4-0 Monocryl in subcuticular fashion. Skin glue and dressings were placed. The patient is allowed awaken from anesthesia and sent to recovery in stable condition having tolerated the procedure well Plan - Discharge Summary Discharge Rx Participant: No New Discharge Prescriptions: No Action Atorvastatin [Lipitor] 20 mg PO DAILY Metoprolol Tartrate [Lopressor] 25 mg PO BID 30 Days #60 tab amLODIPine [Norvasc] 5 mg PO QAM Tirzepatide [Mounjaro] 10 mg SQ WE Discharge Medication List Atorvastatin [Lipitor] 20 mg PO DAILY 06/28/23 [History] Metoprolol Tartrate [Lopressor] 25 mg PO BID 30 Days #60 tab 07/02/23 [Rx] Tirzepatide [Mounjaro] 10 mg SQ WE 08/16/23 [History] amLODIPine [Norvasc] 5 mg PO QAM 08/16/23 [History] Follow up Appointment(s)/Referral(s): Samina Gómez DO [STAFF PHYSICIAN] - 1 Week Activity/Diet/Wound Care/Special Instructions: Resume regular home medications. Resume regular home diet. Resume regular activity. May shower starting tomorrow. May remove outer dressing. No soaking. May apply ice packs for pain control Discharge Disposition: HOME SELF-CARE
[2024-06-25 09:51] VITALS: BP 113/78; PULSE 85
== END 2024-06-25 10:02 | disposition home or self-care (01) ==
LOC: OR 07:24
PROVIDERS: ATTEND Surgery

== ENCOUNTER → 2024-08-15 | Outpatient (CLI) | payer BC ==
[2024-08-15 12:09] LABS: African American GFR (CKD) 68 (>60 ml/min/1.73 sqM); Blood Urea Nitrogen 18 mg/dL (9-20); Non-African American GFR(CKD) 59 (>60 ml/min/1.73 sqM)
--- NOTE | 2024-08-15 14:04 | CT ---
EXAMINATION TYPE: CT ChestAbdPelvis w con CT DLP: 1805.20 mGycm, Automated exposure control for dose reduction was used. DATE OF EXAM: 08/15/2024 1:40 PM COMPARISON: CT chest abdomen and pelvis 05/22/2024, 01/12/2024, PET/CT 02/22/2024, 10/26/2023, 07/13/2023. CLINICAL INDICATION:Male, 58 years old with history of C83.30 DIFFUSE LARGE B-CELL LYMPHOMA, UNSPECIF IED; [facility], Technique: Multiple axial images of the chest, abdomen, and pelvis were obtained following the intrav enous administration of 100 mL Isovue-300. Oral contrast was administered. Two-dimensional coronal an d sagittal reconstructions were obtained. Findings: CHEST: LUNGS/ PLEURA: No pleural effusion, pneumothorax, focal consolidation. Minimal right lower lobe media l subsegmental bilateral atelectasis. No new suspicious pulmonary nodule or mass. AIRWAY: Patent and unremarkable.. HEART: Size within normal limits. No pericardial effusion. MEDIASTINUM: No evidence of adenopathy. VASCULATURE: No aortic aneurysm. Removal of previously demonstrated right anterior chest wall Medipo rt. MUSCULOSKELETAL: No acute osseous abnormalities. DISH of the thoracic spine. Healed right-sided rib f ractures. No aggressive osseous lesions. SOFT TISSUES/LYMPH NODES: Minimal bilateral gynecomastia. LOWER NECK: No significant findings. ABDOMEN: ABDOMEN LIVER: Unremarkable GALLBLADDER AND BILE DUCTS: Layering increased densities within the lumen consistent with gallstones are present. No productive dilatation. PANCREAS: Unremarkable. SPLEEN: Similar appearance of ill-defined hypodense lesions within the spleen from prior CT. Stable m ild splenomegaly measuring 15.3 cm in CC dimension. ADRENAL GLANDS: Unremarkable. KIDNEYS AND URETERS: No evidence of hydronephrosis or renal calculus. The kidneys enhance symmetrical ly. Contrast is demonstrated within both collecting systems on delayed phase. Subcentimeter hypodense lesions within both kidneys that are too small to characterize but likely represent cysts. PELVIS BLADDER: Unremarkable REPRODUCTIVE: Coarse calcification of the prostate gland are identified. ABDOMEN & PELVIS STOMACH AND BOWEL: Stomach appears unremarkable. Periampullary duodenal diverticulum. Bowel wall thic kening or surrounding inflammatory changes. Enteric contrast reaches the ileocecal junction. Distal c olonic diverticulosis. The appendix is within normal limits. No evidence of bowel obstruction. PERITONEUM: No evidence of pneumoperitoneum or free fluid. VASCULATURE: No evidence of aortic aneurysm. MUSCULOSKELETAL: No acute osseous abnormalities. Partial fusion along the anterior aspect of the righ t SI joint. No aggressive osseous lesions. LYMPH NODES: Stable size of right external iliac lymph nodes measuring 1.0 cm short axis. Additional stable size right anterior common iliac chain lymph node measuring 1.6 cm. Stable size of right obtur ator lymph node measured 1.0 cm short axis. No new lymphadenopathy. SOFT TISSUE/ABDOMINAL WALL: Tiny fat filled umbilical hernia. Stable size of right inguinal 2.3 cm le roseann. IMPRESSION: 1. Overall stable exam with stable size of right pelvic adenopathy. No new lymphadenopathy. 2. Stable right inguinal indeterminate lesion possibly representing treated metastasis disease. 3. Stable appearance of hypodense ill-defined lesions within the spleen from prior CT. No FDG activi ty identified on prior PET/CT suggesting treated metastasis. Stable mild splenomegaly. 4. Cholelithiasis. [facility], , 08/15/2024 2:01 PM
== END | disposition home or self-care (01) ==
LOC: RADCTMAIN 11:27
PROVIDERS: ATTEND Internal Medicine Hematology & Oncology
DX: C83.30 Diffuse large B-cell lymphoma, unspecified site (principal); K80.20 Calculus of gallbladder without cholecystitis without obstruction; R16.1 Splenomegaly, not elsewhere classified; R59.0 Localized enlarged lymph nodes; K86.2 Cyst of pancreas; D75.1 Secondary polycythemia; I10 Essential (primary) hypertension; E78.5 Hyperlipidemia, unspecified; R79.89 Other specified abnormal findings of blood chemistry; E11.9 Type 2 diabetes mellitus without complications
CPT/HCPCS: 82565; 84520; 71260; 74177; 36415; Q9967

== ENCOUNTER → 2024-11-11 | Outpatient (CLI) | payer BC ==
[2024-11-11 13:33] LABS: African American GFR (CKD) 70 (>60 ml/min/1.73 sqM); Blood Urea Nitrogen 21 mg/dL (9-20); Non-African American GFR(CKD) 60 (>60 ml/min/1.73 sqM)
--- NOTE | 2024-11-11 15:30 | CT ---
EXAMINATION TYPE: CT ChestAbdPelvis w con CT DLP: 1795.70 mGycm, Automated exposure control for dose reduction was used. DATE OF EXAM: 11/11/2024 3:12 PM COMPARISON: CT chest abdomen and pelvis 08/15/2024, 05/22/2024, 01/12/2024, PET/CT 02/22/2024, 10/26/2023 . CLINICAL INDICATION:Male, 58 years old with history of C83.30 DIFFUSE LARGE B-CELL LYMPHOMA, UNSPECIF IED; [facility], DIFFUSE LARGE B-CELL LYMPHOMA F/U Technique: Multiple axial images of the chest, abdomen, and pelvis were obtained following the intrav enous administration of 100 mL Isovue-300. Oral contrast was administered. Two-dimensional coronal an d sagittal reconstructions were obtained. Findings: CHEST: LUNGS/ PLEURA: No pleural effusion, pneumothorax, focal consolidation. Linear right lower lobe scarri ng. No new suspicious pulmonary nodule or mass. AIRWAY: Patent and unremarkable.. HEART: Size within normal limits. No pericardial effusion. Small coronary artery calcifications. MEDIASTINUM: No evidence of adenopathy. VASCULATURE: No aortic aneurysm. MUSCULOSKELETAL: No acute osseous abnormalities. DISH of the thoracic spine. Healed right-sided rib f ractures. No aggressive osseous lesions. SOFT TISSUES/LYMPH NODES: Minimal bilateral gynecomastia. LOWER NECK: No significant findings. ABDOMEN: ABDOMEN LIVER: Diffusely hypoattenuating parenchyma. No focal lesion. GALLBLADDER AND BILE DUCTS: Layering increased densities within the lumen consistent with gallstones and biliary sludge present. No biliary ductal dilatation. PANCREAS: Unremarkable. SPLEEN: There is some capsular retraction of the spleen with less prominent appearance of previously seen ill-defined hypodense lesions. There is spleen is at top end of normal for size measuring 14.7 c m. ADRENAL GLANDS: Unremarkable. KIDNEYS AND URETERS: No evidence of hydronephrosis or renal calculus. The kidneys enhance symmetrical ly. Contrast is demonstrated within both collecting systems on delayed phase. Subcentimeter hypodense lesions within both kidneys that are too small to characterize but likely represent cysts. PELVIS BLADDER: Unremarkable REPRODUCTIVE: Coarse calcification of the prostate gland are identified. ABDOMEN & PELVIS STOMACH AND BOWEL: Stomach appears unremarkable. Periampullary duodenal diverticulum. Bowel wall thic kening or surrounding inflammatory changes. Enteric contrast reaches the rectum. No focal bowel wall thickening or surrounding inflammatory changes. Distal colonic diverticulosis. The appendix is contra st-filled and within normal limits. No evidence of bowel obstruction. PERITONEUM: No evidence of pneumoperitoneum or free fluid. VASCULATURE: No evidence of aortic aneurysm. MUSCULOSKELETAL: No acute osseous abnormalities. Partial fusion along the anterior aspect of the righ t SI joint. No aggressive osseous lesions. LYMPH NODES: Stable size of right external iliac lymph nodes measuring 1.0 cm short axis. Additional stable size right anterior common iliac chain lymph node measuring 1.6 cm. Stable size of right obtur ator lymph node measured 1.0 cm short axis. No new lymphadenopathy. SOFT TISSUE/ABDOMINAL WALL: Tiny fat filled umbilical hernia. Marginal decrease in size of right ingu inal 2.1 cm lesion, previously 2.3 cm. IMPRESSION: 1. Stable borderline enlarged right pelvic adenopathy. No new lymphadenopathy. 2. Marginal decrease in size of right inguinal indeterminate lesion possibly representing treated me tastasis disease. 3. Less conspicuous appearance of previously seen ill-defined hypodense lesions within the spleen. P robably treated metastasis. 4. Cholelithiasis. [facility], , 11/11/2024 3:28 PM
== END | disposition home or self-care (01) ==
LOC: RADCTMAIN 12:41
PROVIDERS: ATTEND Internal Medicine Hematology & Oncology
DX: C83.30 Diffuse large B-cell lymphoma, unspecified site (principal); K86.2 Cyst of pancreas; D75.1 Secondary polycythemia; I10 Essential (primary) hypertension; E78.5 Hyperlipidemia, unspecified; R79.89 Other specified abnormal findings of blood chemistry; E11.9 Type 2 diabetes mellitus without complications; K80.20 Calculus of gallbladder without cholecystitis without obstruction; R59.0 Localized enlarged lymph nodes; K42.9 Umbilical hernia without obstruction or gangrene
CPT/HCPCS: 82565; 84520; 71260; 74177; 36415; Q9967